=== PATIENT | female | born 2000 | race Caucasian/White ===

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

== ENCOUNTER → 2020-03-15 | Outpatient (CLI) | payer OTHER ==
[~2020-03-15] MED LIST: FLAG500T PO; FLUC150T PO; PROV108A INH
== END ==
LOC: M WUC 12:57
PROVIDERS: ATTEND Nurse Practitioner Family
DX: Z32.01 Encounter for pregnancy test, result positive (principal)
CPT/HCPCS: 36415; 84702; G0463

== ENCOUNTER → 2020-03-18 | Outpatient (CLI) | payer OTHER | LOC: M WUC 14:06 | PROVIDERS: ATTEND Nurse Practitioner Family | DX: Z32.01 Encounter for pregnancy test, result positive (principal) ==

== ENCOUNTER 2020-03-29 22:19 | Emergency (ER) | payer OTHER ==
[~2020-03-29] VITALS: Ht 160 cm; Wt 60.8 kg
--- OUTSIDE RECORDS SUMMARY | 2020-03-29 22:24 | CCD ---
Author Author [facility] Organization [facility] Address Unknown Phone Unavailable Care Team Providers Care Manager Consumer Name Role Phone Amada Nam Unavailable PROBLEMS Type Condition ICD9-CM Code [id number] Code Onset Dates Condition S tatus W/U Status Risk SNOMED Code Notes Problem Mild intermittent asthma without complication J45. 20 Active confirmed [id number] ALLERGIES No Known Allergies ENCOUNTERS from 2000 to 2020-03-21 Encounter Location Date Provider Diagnosis [facility] [address] [place] [address], Amada Nam Encounter to establish care Z76.89 ; Pos itive urine test Z32.01 and Mild intermittent asthma without complication J45.20 IMMUNIZATIONS No Information SOCIAL HISTORY Tobacco Use: Social History Observation Description Date Details (start date - stop date) Never Smoker Sex Assigned At : Social History Observation Description Sex Assigned At Unknown Education: Question Answer Notes Level of Education: High School Audit Question Answer Notes Total Score: 1 Interpretation: Alcohol Education Language: Question Answer Notes Languages spoken: Romanian Jehovah'S Witness: Question Answer Notes Jehovah'S Witness No jew beliefs that would impact health care. Domestic Violence: Question Answer Notes Status: Sexual Hx: Question Answer Notes Had sex in the last 12 months (vaginal, oral, or anal)? Yes LMP: 01/2020 Have you ever had an STD? No with Men only Use protection? No Drug and Alcohol Question Answer Notes Total Score: 0 Interpretation: No problems reported Alcohol Screening: Question Answer Notes Did you have a drink containing alcohol in the past year? Ye s Points 1 Interpretation Negative How often did you have six or more drinks on one occas ion in the past year? Never (0 points) How often did you have a drink containing alcohol in t he past year? Monthly or less (1 point) Tobacco Use: Question Answer Notes Are you a: never smoker REASON FOR REFERRAL No Information VITAL SIGNS Weight 134 lbs Mar, Height 62.5 in Mar, BMI 24.12 kg/m2 Mar, Heart Rate 81 /min Mar, Respiratory Rate 17 /min Mar, Temperature 98.3 degrees Fahrenheit Mar, Oximetry 97 Mar, Blood pressure systolic 103 mm Hg Mar, Blood pressure diastolic 80 mm Hg Mar, MEDICATIONS Medication SIG (Take, Route, Frequency, Duration) Notes Start Da te End Date Status Albuterol Sulfate HFA 108 (90 Base) MCG/ACT 1 puff as needed Inhalation every 4 hrs for 30 Days Mar, Active PROCEDURES No Information RESULTS No Results REASON FOR VISIT ESTABLISH CARE/PATIENT IS MEDICAL (GENERAL) HISTORY Type Description Date Surgical History Broken Left Arm 11 yrs Surgical History Ovarian Cysts Removed 2018 Goals Section No Information Health Concerns No Information MEDICAL EQUIPMENT No Information MENTAL STATUS No Information FUNCTIONAL STATUS No Information ASSESSMENTS Encounter Date Diagnosis Assessment Notes Treatment Notes Treatm ent Clinical Notes Mar, Encounter to establish care (ICD-10 - Z76.89) Appears to be physically healthy. Discussed pegnancy diet/lifestyle precautions, including medication safety at length. Discussed continued use of unisom/b6 until first OB appointment. Serial hcg ordered. Referral to OB placed. Albuterol inhaler refilled. No excerbations requiring hospitalization in PMH. Mar, Positive urine test (ICD-10 - Z32.01) Mar, Mild intermittent asthma without complication (I CD-10 - J45.20) see notes above PLAN OF TREATMENT Medication Medication Name Sig Start Date Stop Date Albuterol Sulfate HFA 108 (90 Base) MCG/ACT 1 puff as needed Inhalation every 4 hrs for 30 Days Mar, Treatment Notes Assessment Notes Clinical Notes Encounter to establish care Appears to b e physically healthy. Discussed pegnancy diet/lifestyle precautions, including medication safety at length. Discussed continued use of unisom/b6 until first OB appointment. Serial hcg ord ered. Referral to OB placed. Albuterol inhaler refilled. No excerbations requiring hospitalization in PMH. Mild intermittent asthma without complication see notes above Future Test Test Name Order Date HCG, SERUM QUANTITATIVE 20200318 HCG, SERUM QUANTITATIVE [id number] Next Appt Details 1 year, sooner if needed Reason: Provider Name:Tory Canseco, 2020-04-12 0 1:20:00 PM, [address] [place], [address], Insurance Providers Payer Name Payer Address Payer Phone Insured Name Patient Relati onship to Insured Coverage Start Date Coverage End Date [place] [phone] YING CHRISTINA
--- OUTSIDE RECORDS SUMMARY | 2020-03-29 22:25 | CCD ---
Author Author [facility] Organization [facility] Address Unknown Phone Unavailable Support Name Relationship Address Phone YING CHRISTINA Next Of Kin Unknown [phone] UE Next Of Kin Unknown Unavailable YING CHRISTINA Next Of Kin [address] [place] [address] YING CHRISTINA ECON [address] [place] [id number] Unavailable Re-disclosure Warning The records that you are about to access may contain information from federally-assisted alcohol or drug abuse programs. If such information is present, then the following federally mandated warning applies: This information has been disclosed to you from records protected by federal confidentiality rules (42 CFR part 2). The federal rules prohibit you from making any further disclosure of this information unless further disclosure is expressly permitted by the written consent of the person to whom it pertains or as otherwise permitted by 42 CFR part 2. A general authorization for the release of medical or other information is NOT sufficient for this purpose. The Federal rules restrict any use of the information to criminally investigate or prosecute any alcohol or drug abuse patient.The records that you are about to access may contain highly sensitive health information, the redisclosure of which is protected by Article 27-F of the [facility] Public Health law. If you continue you may have access to information: Regarding HIV / AIDS; Provided by facilities licensed or operated by the [facility] Office of Mental Health; or Provided by the [facility] Office for People With Developmental Disabilities. If such information is present, then the following [facility] mandated warning applies: This information has been disclosed to you from confidential records which are protected by state law. State law prohibits you from making any further disclosure of this information without the specific written consent of the person to whom it pertains, or as otherwise permitted by law. Any unauthorized further disclosure in violation of state law may result in a fine or detention sentence or both. A general authorization for the release of medical or other information is NOT sufficient authorization for further disc losure. Family History Family Member Name Family Member Gender Family Member Status Date o f Status Description Data Source(s) Unknown Male Problem MEDENT ([facility]) Encounters Encounter Providers Location Date Indications Data Source(s ) Out[place] [address] [facility] [address] 03/15/2020 12:00:00 AM EST eCW1 ([facility]) Medications Medication Brand Name Start Date Product Form Dose Route Admi nistrative Instructions Pharmacy Instructions Status Indications Reaction Description Data Source(s) Albuterol Sulfate HFA 108 (90 Base) MCG/ACT Albuterol Sulfate HFA 108 (90 Base) MCG/ACT 03/15/2020 12:00:00 AM EST 1.0 {puff_as_needed} active Albuterol Sulfate HFA 108 (90 Base) MCG/ACT eCW1 ([facility]) Insurance Providers Payer name Policy type / Coverage type Policy ID Covered alliance party ID Covered alliance party's relationship to koehler Policy Koehler Plan Information [facility] [id number] 2 [id number] [employer] - O/P [id number] 01 [id number] [employer] [place] [id number] 01 [id number] [employer] [place] [id number] 01 [id number] [employer] - PHYSICIAN [id number] 01 [id number] [employer] [id number] Family Dependent [id number] [employer] [id number] Family Dependent [id number] [employer] [id number] [facility] [id number] Problems, Conditions, and Diagnoses Code Display Name Description Problem Type Effective Dates Data Source(s) J45.20 [id number] Mild intermittent asthma without complica tion Problem 03/15/2020 12:00:00 AM EST eCW1 ([facility]) Social History Code Duration Value Status Description Data Source(s ) Smoking 03/15/2020 12:00:00 AM EST Never Smoker completed Never S moker eCW1 ([facility]) Vital Signs ID Date Data Source UNK Name Value Range Interpretation Code Description Data Source(s) Diastolic blood pressure 80 mm[Hg] 80 mm[Hg] eCW1 ([facility]) Systolic blood pressure 103 mm[Hg] 103 mm[Hg] e CW1 ([facility]) Body temperature 98.3 [degF] 98.3 [degF] eCW1 ( [facility]) Respiratory rate 17 /min 17 /min eCW1 ([facility]) Heart rate 81 /min 81 /min eCW1 ([facility]) Body mass index (BMI) [Ratio] 24.12 kg/m2 24.12 kg/m2 eCW1 ([facility]) Body height 62.5 [in_i] 62.5 [in_i] eCW1 ([facility]) Body weight 134 [lb_av] 134 [lb_av] eCW1 ([facility]) Patient Treatment Plan of Care Planned Activity Planned Date Details Description Data Source (s) Albuterol Sulfate HFA 108 (90 Base) MCG/ACT 03/15/2020 12:00:00 AM EST eCW1 ([facility])
[2020-03-29 22:52] LABS: BASO % 0.3 % (0.0-1.0); EOS # 0.1 10^3/uL (0.0-0.5); HEMOGLOBIN 12.4 g/dl (12.0-15.5); LYMPH # 2.6 10^3/uL (1.5-5.0); LYMPH % 27.9 % (24.0-44.0); MEAN CORPUSCULAR HEMOGLOBIN 29.3 pg (27.0-33.0); MEAN CORPUSCULAR HGB CONC 32.6 g/dl (32.0-36.5); MEAN CORPUSCULAR VOLUME 89.8 fl (80.0-96.0); MONO # 0.5 10^3/uL (0.0-0.8); MONO % 5.6 % (2.0-8.0); NEUTROPHILS # 5.9 10^3/uL (1.5-8.5); NEUTROPHILS % 64.9 % (36.0-66.0); PLATELET COUNT, AUTOMATED 324 10^3/uL (150-450); RED BLOOD COUNT 4.23 10^6/uL (4.00-5.40); WHITE BLOOD COUNT 9.2 10^3/uL (4.0-10.0)
[2020-03-29 23:34] LABS: ALT/SGPT 38 U/L (12-78); BILIRUBIN,DIRECT < 0.1 MG/DL (0.0-0.2); BILIRUBIN,TOTAL 0.1 MG/DL (0.2-1.0); HCG, SERUM QUANTITATIVE 95347 MIU/ML; LIPASE 124 U/L (73-393); TOTAL PROTEIN 7.5 GM/DL (6.4-8.2)
--- OUTSIDE RECORDS SUMMARY | 2020-03-29 23:45 | CCD ---
Author Author [facility] Organization [facility] Address Unknown Phone Unavailable Support Name Relationship Address Phone YING CHRISTINA Next Of Kin Unknown [phone] UE Next Of Kin Unknown Unavailable YING CHRISTINA Next Of Kin [address] [place] [address] YING CHRISTINA ECON [address] [place] [address] Unavailable Re-disclosure Warning The records that you [...] is protected by Article 27-F of the [facility] Public Health law. If you continue you may have access to information: Regarding HIV / AIDS; Provided by facilities licensed or operated by the [facility] Office of Mental Health; or Provided by the [facility] Office for People With Developmental Disabilities. If such information is present, then the following [facility] mandated warning applies: This information has [...] law may result in a fine or correction sentence or both. A general authorization for the release of medical or other information is NOT sufficient authorization for further disc losure. Family History Family Member Name Family Member Gender Family Member Status Date o f Status Description Data Source(s) Unknown Male Problem MEDENT ([facility]) Encounters Encounter Providers Location Date Indications Data Source(s ) Outpatient [address] [facility] [address] 03/15/2020 12:00:00 AM EST eCW1 ([facility]) Medications Medication Brand Name Start Date Product Form Dose Route Admi nistrative Instructions Pharmacy Instructions Status Indications Reaction Description Data Source(s) Albuterol Sulfate HFA 108 (90 Base) MCG/ACT Albuterol Sulfate HFA 108 (90 Base) MCG/ACT 03/15/2020 12:00:00 AM EST 1.0 {puff_as_needed} active Albuterol Sulfate HFA 108 (90 Base) MCG/ACT eCW1 ([facility]) Insurance Providers Payer name Policy type / Coverage type Policy ID Covered constitution party ID Covered constitution party's relationship to koehler Policy Koehler Plan Information [facility] [id number] [facility] [id number] [employer] - O/P [id number] 01 [id number] [employer] [place] [id number] 01 [id number] [employer] [place] [id number] 01 [id number] [employer] PHYSICIAN [id number] 01 [id number] [employer] [id number] Family Dependent [id number] [employer] [id number] Family Dependent [id number] [employer] [facility] [id number] [facility] [id number] Problems, Conditions, and Diagnoses Code Display Name Description Problem Type Effective Dates Data Source(s) J45.20 [id number] Mild intermittent asthma without complica tion Problem 03/15/2020 12:00:00 AM EST eCW1 ([facility]) Social History Code Duration Value Status Description Data Source(s ) Smoking 03/15/2020 12:00:00 AM EST Never Smoker completed Never S moker eCW1 ([facility]) Vital Signs ID Date Data Source UNK Name Value Range Interpretation Code Description Data Source(s) Diastolic blood pressure 80 mm[Hg] 80 mm[Hg] eCW1 ([facility]) Systolic blood pressure 103 mm[Hg] 103 mm[Hg] e CW1 ([facility]) Body temperature 98.3 [degF] 98.3 [degF] eCW1 ( [facility]) Respiratory rate 17 /min 17 /min eCW1 ([facility]) Heart rate 81 /min 81 /min eCW1 ([facility]) Body mass index (BMI) [Ratio] 24.12 kg/m2 24.12 kg/m2 eCW1 ([facility]) Body height 62.5 [in_i] 62.5 [in_i] eCW1 ([facility]) Body weight 134 [lb_av] 134 [lb_av] eCW1 ([facility]) Patient Treatment Plan of Care Planned Activity Planned Date Details Description Data Source (s) Albuterol Sulfate HFA 108 (90 Base) MCG/ACT 03/15/2020 12:00:00 AM EST eCW1 ([facility])
--- NOTE | 2020-03-30 00:34 | REPVR ---
PROCEDURE INFORMATION: Exam: US First Trimester, Transabdominal Exam date and time: 03/30/2020 12:15 AM Age: 19 years old Clinical indication: Lmp or gestational age (in weeks): 8w 3d; Other: Vaginal discharge and cramping; ; Additional info: Cramping/discharge TECHNIQUE: Imaging protocol: Real-time transabdominal obstetrical ultrasound of the maternal pelvis and a first trimester , less than 14 weeks 0 days, with image documentation. COMPARISON: No relevant prior studies available. FINDINGS: Gestation: Single live intrauterine gestation. Embryonic/ heart rate: heart rate measures 172 bpm. Placenta: Unremarkable. No subchorionic bleed. Amniotic fluid: Amniotic fluid is normal for gestational age. BIOMETRY: Gestational age (AUA): Estimated gestational age is 8 weeks 4 days. Estimated due date (AUA): Estimated due date is 11/05/2020. Bromide-Rump length: Bromide-rump length measures 19.5 cm. 50 percentile. MATERNAL: Uterus: Unremarkable. Cervix: Unremarkable. Right adnexa: Sought but not visualized. Left adnexa: Hypoechoic cyst in the left ovary measuring 7.5 x 6.6 x 7.0 cm. Minimal rim ovarian tissue is seen around the cyst. There appears to be debris layering within the cyst. Intraperitoneal space: No intraperitoneal free fluid. IMPRESSION: 1. Single live intrauterine gestation. 2. Estimated gestational age is 8 weeks 4 days. 3. Estimated due date is 11/05/2020. 4. Recommend follow-up anatomical survey ultrasound at 19-20 weeks gestational age. 5. Mildly complicated cyst in the left ovary. Recommend 6-12 week follow-up to ensure resolution. Electronically signed by: López Jordan On 03/30/2020 00:34:46 AM
[2020-03-30] MEDS ORDERED: FLAG500T PO (01:52)
[2020-03-30 02:00] VITALS: BP 121/69
[2020-03-30 03:07] LABS: CHLAMYDIA DNA AMPLIFICATION POSITIVE (NEGATIVE); GC DNA AMPLIFICATION NEGATIVE (NEGATIVE)
--- NOTE | 2020-04-01 08:20 | ED PDOC ---
Post-Departure Follow-Up first trimester us faxed to dr calixto and ft edi alvarado for fu Linda Alicea MD Apr 01, 2020 08:20
== END 2020-03-30 02:01 | disposition home or self-care (01) ==
LOC: M ED 22:19
DX: N76.0 Acute vaginitis (principal); N83.202 Unspecified ovarian cyst, left side; Z3A.01 Less than 8 weeks gestation of pregnancy

== ENCOUNTER → 2020-05-30 | Outpatient (REF) | payer OTHER ==
[2020-05-30 15:35] LABS: HEMATOCRIT 35.7 % (36.0-47.0); HEMOGLOBIN 11.8 g/dl (12.0-15.5); MEAN CORPUSCULAR HEMOGLOBIN 30.9 pg (27.0-33.0); MEAN CORPUSCULAR HGB CONC 33.1 g/dl (32.0-36.5); MEAN CORPUSCULAR VOLUME 93.5 fl (80.0-96.0); PLATELET COUNT, AUTOMATED 279 10^3/uL (150-450); RED BLOOD COUNT 3.82 10^6/uL (4.00-5.40); WHITE BLOOD COUNT 9.5 10^3/uL (4.0-10.0)
[2020-05-30 16:57] LABS: CHLAMYDIA DNA AMPLIFICATION NEGATIVE (NEGATIVE); GC DNA AMPLIFICATION NEGATIVE (NEGATIVE)
[2020-05-31 09:20] LABS: HIV 1&2 SCREEN CENTAUR NEGATIVE (NEGATIVE)
== END ==
LOC: M PLALAB 12:46
PROVIDERS: ATTEND Advanced Practice Midwife
DX: Z36.89 Encounter for other specified antenatal screening (principal)

== ENCOUNTER → 2020-06-21 | Outpatient (REF) | payer OTHER | LOC: M SFHCWAGY 16:48 | PROVIDERS: ATTEND Advanced Practice Midwife | DX: Z34.02 Encounter for supervision of normal first pregnancy, second trimester (principal) | CPT/HCPCS: 87086; G0463 ==

== ENCOUNTER → 2020-07-02 | Outpatient (CLI) | payer OTHER ==
--- NOTE | 2020-07-02 14:00 | REP ---
INDICATION: ANATOMY COMPARISON: None. TECHNIQUE: Transabdominal obstetrical ultrasound with color Doppler evaluation. FINDINGS: Examination demonstrates a single live intrauterine in cephalic presentation. motion is identified by technologist. Placenta is noted posterior/fundal and grade 0 without evidence for placenta previa or abruption. Amniotic fluid volume is normal. Cervix measures 3.3 cm in length and appears closed.. Gestational age by 1st U/S 21 weeks 6 days with HAWA 11/06/2020. Gestational age by current measurements 22 weeks 5 days with AHWA 10/31/2020. FHR equals 152 beats per minute. Estimated weight 507 grams (73rdpercentile). Anatomical assessment demonstrates normal structures including cranium, choroid plexus, cavum, cerebellum/posterior fossa, facial features, lungs, four-chamber heart/ventricular outflow tracts, diaphragm, stomach, cord insertion/three-vessel cord, kidneys/bladder, spine, and extremities. IMPRESSION: Single live intrauterine in cephalic presentation demonstrating appropriate estimated weight. Anatomical assessment is complete and normal. <Electronically signed by Chandler Reaves > 07/02/20 [id number]
== END ==
LOC: M WHC 12:46
PROVIDERS: ATTEND Advanced Practice Midwife
DX: Z34.82 Encounter for supervision of other normal pregnancy, second trimester (principal); Z3A.21 21 weeks gestation of pregnancy

== ENCOUNTER 2020-07-27 11:34 | Outpatient (CLI) | payer OTHER ==
[~2020-07-27] VITALS: Ht 157.5 cm; Wt 67.8 kg
[2020-07-27 11:50] VITALS: BP 118/65
[2020-07-27 14:16] VITALS: BP 118/66
[2020-07-27 15:32] LABS: HEMATOCRIT 29.1 % (36.0-47.0); HEMOGLOBIN 9.5 g/dl (12.0-15.5); MEAN CORPUSCULAR HEMOGLOBIN 30.2 pg (27.0-33.0); MEAN CORPUSCULAR HGB CONC 32.6 g/dl (32.0-36.5); MEAN CORPUSCULAR VOLUME 92.4 fl (80.0-96.0); PLATELET COUNT, AUTOMATED 284 10^3/uL (150-450); RED BLOOD COUNT 3.15 10^6/uL (4.00-5.40); WHITE BLOOD COUNT 9.9 10^3/uL (4.0-10.0)
== END 2020-07-27 17:12 | disposition home or self-care (01) ==
LOC: M LDO 11:34
PROVIDERS: ATTEND Obstetrics & Gynecology
DX: O26.892 Other specified pregnancy related conditions, second trimester (principal); R25.2 Cramp and spasm; Z3A.25 25 weeks gestation of pregnancy; O26.852 Spotting complicating pregnancy, second trimester
CPT/HCPCS: 36415; 81001; 82731; 85027; G0378; G0463

== ENCOUNTER → 2020-08-26 | Outpatient (CLI) | payer OTHER ==
[2020-08-26 15:18] LABS: HEMATOCRIT 29.4 % (36.0-47.0); HEMOGLOBIN 9.2 g/dl (12.0-15.5); MEAN CORPUSCULAR HGB CONC 31.3 g/dl (32.0-36.5); MEAN CORPUSCULAR VOLUME 89.4 fl (80.0-96.0); PLATELET COUNT, AUTOMATED 332 10^3/uL (150-450); RED BLOOD COUNT 3.29 10^6/uL (4.00-5.40); WHITE BLOOD COUNT 10.3 10^3/uL (4.0-10.0)
== END ==
LOC: M PLALAB 12:18
PROVIDERS: ATTEND Advanced Practice Midwife
DX: Z34.82 Encounter for supervision of other normal pregnancy, second trimester (principal)

== ENCOUNTER 2020-09-09 13:59 | Inpatient (IN) | payer OTHER ==
[~2020-09-09] VITALS: Ht 160 cm; Wt 71.5 kg
[2020-09-09] MEDS ORDERED: ACETAMINOPHEN 500 MG TAB PO ONE (16:05)
[2020-09-09] MEDS ORDERED: NS 1,000 ML IV ONE ×2 (16:05→18:10)
[2020-09-09] MEDS ORDERED: METOCLOPRAMIDE INJ 10MG/2ML VIAL (J2765 PER 1) IV ONE (16:05)
[2020-09-09 17:41] LABS: BASO % 0.3 % (0.0-1.0); EOS % 0.3 % (0.0-3.0); HEMATOCRIT 31.6 % (36.0-47.0); HEMOGLOBIN 9.7 g/dl (12.0-15.5); LYMPH # 0.8 10^3/uL (1.5-5.0); LYMPH % 10.8 % (24.0-44.0); MEAN CORPUSCULAR HEMOGLOBIN 27.3 pg (27.0-33.0); MEAN CORPUSCULAR HGB CONC 30.7 g/dl (32.0-36.5); MONO # 0.3 10^3/uL (0.0-0.8); MONO % 4.5 % (2.0-8.0); NEUTROPHILS # 5.9 10^3/uL (1.5-8.5); NEUTROPHILS % 79.8 % (36.0-66.0); PLATELET COUNT, AUTOMATED 262 10^3/uL (150-450); RED BLOOD COUNT 3.55 10^6/uL (4.00-5.40); WHITE BLOOD COUNT 7.4 10^3/uL (4.0-10.0)
[2020-09-09 17:52] LABS: INR 0.99; PROTHROMBIN TIME 13.5 SECONDS (12.7-14.5)
[2020-09-09 17:53] LABS: PARTIAL THROMBOPLASTIN TIME 30.5 SECONDS (25.9-37.0)
[2020-09-09 17:55] LABS: D-DIMER QUANT 1027.96 ng/ml (<500)
[2020-09-09 18:07] LABS: ALBUMIN 2.8 GM/DL (3.2-5.2); ALT/SGPT 19 U/L (12-78); BLOOD UREA NITROGEN 5 MG/DL (7-18); C REACTIVE PROTEIN QUANTITATIV 2.81 MG/DL (0.00-0.30); CALCIUM LEVEL 8.9 MG/DL (8.5-10.1); CARBON DIOXIDE LEVEL 17 MEQ/L (21-32); CHLORIDE LEVEL 109 MEQ/L (98-107); CK-MB VALUE MASS < 1.0 NG/ML (<3.6); CPK CREATINE PHOSPHOKINASE 34 U/L (26-192); CREATININE FOR GFR 0.52 MG/DL (0.55-1.30); FERRITIN 13 NG/ML (8-252); GLUCOSE, FASTING 71 MG/DL (70-100); LDH LACTATE DEHYDROGENASE 209 U/L (84-246); MAGNESIUM LEVEL 1.8 MG/DL (1.8-2.4); MB/CK RELATIVE INDEX 2.94 (< OR =4); SODIUM LEVEL 139 MEQ/L (136-145); TROPONIN I < 0.02 NG/ML (< 0.10)
[2020-09-09 18:51] LABS: ERYTHROCYTE SEDIMENTATION RATE 63 mm/hr (0-20)
--- NOTE | 2020-09-09 18:53 | REP ---
INDICATION: RUQ pain, n,v. COMPARISON: None. TECHNIQUE: Real-time sonographic evaluation of right upper quadrant performed. FINDINGS: Moderate sludge is seen in the gallbladder without evidence of gallstones. There is no gallbladder wall thickening or pericholecystic fluid.. There is no intrahepatic or extrahepatic biliary dilatation, common bile duct measures 2 mm in maximum diameter. The liver demonstrates homogeneous echotexture with no gross mass. Pancreas could not be seen due to overlying bowel gas. The right kidney demonstrates no hydronephrosis, with a normal size of 10.6 cm in length. No free fluid is seen. IMPRESSION: Moderate sludge in the gallbladder. No gallstones, gallbladder wall thickening, free fluid or biliary dilatation. <Electronically signed by Aiden Lo > 09/09/20 [id number]
--- NOTE | 2020-09-09 18:54 | REP ---
INDICATION: short of breath, leg pain, covid exposure COMPARISON: None. TECHNIQUE: Real time compression and duplex Doppler interrogation of the bilateral lower extremity deep venous system is performed. Compression ultrasound is performed of the bilateral peroneal and posterior tibial veins. FINDINGS: Bilaterally, the common femoral, superficial femoral and popliteal veins are fully compressible with transducer pressure and demonstrate normal spontaneous and phasic flow, without evidence of deep venous thrombosis. No thrombus is seen in the bilateral visualized portions of the peroneal and posterior tibial veins. IMPRESSION: No evidence of deep venous thrombosis of the bilateral lower extremity femoral popliteal venous system. <Electronically signed by Aiden Lo > 09/09/20 0725
[2020-09-09] MEDS ORDERED: FERR32TA PO (19:04)
[2020-09-09] MEDS ORDERED: HOME MED LIST COMPLETE! XX SCH (19:05)
--- NOTE | 2020-09-09 19:41 | REP ---
INDICATION: short of breath, covid + COMPARISON: None. TECHNIQUE: PA/Lateral FINDINGS: Lungs: There are patchy infiltrates in the bilateral mid and lower lung zones, right greater than left. Heart: Normal in size. Mediastinum: Mediastinal silhouette unremarkable. Pleural angles: Unremarkable.. Bones and soft tissues: Unremarkable. IMPRESSION: Bilateral infiltrates right greater than left. <Electronically signed by Aiden Lo > 09/09/20 [id number]
[2020-09-09] MEDS ORDERED: ASPIRIN 325 MG TAB PO ONE (19:55)
--- NOTE | 2020-09-09 20:02 | ECGEPIP ---
[facility] - ED Test Date: 2020-09-09 Pat Name: ELIF CHRISTINA Department: Room: - Gender: Female Undercutter: [place] : 2000 Requested By: DANITA Jay PA-C Order Number: [id number] Reading MD: Diane Kessler Measurements Intervals [place] Rate: 124 P: 33 IA: 132 QRS: 71 QRSD: 74 T: 3 QT: 318 QTc: 456 Interpretive Statements Sinus tachycardia Nonspecific T wave abnormality No prior Electronically Signed on 09-09-2020 20:02:25 EDT by Diane Kessler
[2020-09-09] MEDS ORDERED: ASPIRIN 81 MG CHEW TABLET PO ONE (20:30)
--- NOTE | 2020-09-09 21:03 | HPEPDOC ---
Obstetrical History & Physical General Date of Admission 09/09/20 Primary Care Physician: COTY BARON CNM History of Present Illness Valeria is a 20-year-old female who is who is 30.6 weeks gestation with an HAWA of 10/05/20. She presented to L&D with complaints of SOB, chest pain, and difficulty breathing. Reports her symptoms started 1 week ago and she has progressively gotten worse. Reports she has been unable to eat or drink for multiple days and has had a fever. She denies contractions, leaking of fluid, or vaginal bleeding. She reports active movement. 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), History of STD (chlamydia 04/2020) Past Medical History Medical History Asthma Anemia in Surgical History: Other (broken left arm and cystectomy removed 08/2018) Family History Significant Family History: No pertinent family hx Social History Social history works for [employer]; highest level of education is high school Marital Status: Family situation: Spouse/partner home Psychosocial History: No pertinent psych hx * Smoker: former Smoker (former vape) Alcohol: Denies Drugs: denies Abuse Violence Screening Have you been hit/kicked/slapp: No Have you been sexually assault: No Allergies Coded Allergies: No Known Allergies (Unverified , 06/06/18) Medications Scheduled Ferrous Gluconate (Ferrous Gluconate) 324 Mg Tablet, 324 MG PO BID Scheduled PRN Albuterol Sulfate (Proventil Hfa) 6.7 Gm Hfa.aer.ad, 2 PUFF INH Q4H PRN for SOB/WHEEZING Physical Examination Physical Examination GENERAL: Alert and oriented times three. Speech is clear and in complete sentences. ABDOMEN: Gravid and non-tender to touch. FETUS:active as heard on EFM HEART RATE: Periods of tachycardia but at rest in the HR in the 90's. LUNGS: Clear to auscultation (CTA) bilaterally. RR is regular without use of accessory muscles when at rest. EXTREMITIES: generalized edema. Sequential stockings on. No clonus. Vital Signs/I&O Vital Signs Date Time Temp Pulse Resp B/P (MAP) Pulse Ox O2 Delivery O2 Flow Rate FiO2 09/09/20 18:52 97.6 106 16 123/60 (81) 98 Room Air Laboratory Data 24H LABS Laboratory Tests 2 09/09/20 16:01: Immature Granulocyte % (Auto) 4.3H, Neutrophils (%) (Auto) 79.8H, Lymphocytes (%) (Auto) 10.8L, Monocytes (%) (Auto) 4.5, Eosinophils (%) (Auto) 0.3, Basophils (%) (Auto) 0.3, Neutrophils # (Auto) 5.9, Lymphocytes # (Auto) 0.8L, Monocytes # (Auto) 0.3, Eosinophils # (Auto) 0.0, Basophils # (Auto) 0.0, Nucleated Red Blood Cells % (auto) 0.0, Erythrocyte Sedimentation Rate 63H, Prothrombin Time 13.5, Prothromb Time International Ratio 0.99, Activated Partial Thromboplast Time 30.5, Fibrinogen 491H, D-Dimer, Quantitative 1027.96H, Anion Gap 13, Lactic Acid Level 1.0, Calcium Level 8.9, Magnesium Level 1.8, Ferritin 13, Total Bilirubin 1.0, Aspartate Amino Transf (AST/SGOT) 26, Alanine Aminotransferase (ALT/SGPT) 19, Alkaline Phosphatase 142H, Lactate Dehydrogenase 209, Total Creatine Kinase 34, Creatine Kinase MB < 1.0, Creatine Kinase MB Relative Index 2.94, Troponin I < 0.02, C-Reactive Protein, Quantitative 2.81H, Total Protein 7.0, Albumin 2.8L, Albumin/Globulin Ratio 0.7L, Procalcitonin 0.07 09/09/20 18:09: Urine Color EUGENE, Urine Appearance HAZY, Urine pH 6.0, Urine Specific [place] 1.028, Urine Protein 2+H, Urine Glucose (UA) 1+H, Urine Ketones 2+H, Urine Blood NEGATIVE, Urine Nitrite NEGATIVE, Urine Bilirubin 1+H, Urine Urobilinogen 4.0H, Urine Leukocyte Esterase NEGATIVE, Urine WBC (Auto) 3, Urine RBC (Auto) 3, Urine Hyaline Casts (Auto) 0, Urine Bacteria (Auto) 1+H, Urine Squamous Epithelial Cells 13, Urine Mucus (Auto) SMALL, Urine Sperm (Auto) CBC/BMP Laboratory Tests 09/09/20 16:01 Microbiology Microbiology 09/09/20 Respiratory Virus Panel (PCR) (JANELL) - Final, Complete SARS-CoV-2 (COVID 19) 09/09/20 Blood Culture, Received Pending 09/09/20 Blood Culture, Received Pending Pertinent Laboratoy Data RBC Antibody Screen: Negative HIV: Negative Rapid Plasma Reagin: Nonreactive Rubella: Immune Chlamydia/Gonorrhea: Negative Glucose Tolerance Test: 116 Other Ultrasounds Information NAME: VALERIA CHRISTINA DATE OF : 2000 AGE: 20 SEX: F REPORT #: [id number] ROOM: ED TECHNOLOGIST: ALPA DOCTOR: DANITA EDWARDS PA-C Ordered for Date&Time: 09/09/20 1858 cc: [~ rep ct ivnm] Service Date&Time: 09/09/20 1916 EXAMINATION REQUESTED: Chest, 2 view PA, Lat REASON FOR PATIENT VISIT: COVID+ REASON FOR EXAM/COMMENT: short of breath, covid + INDICATION: short of breath, covid + COMPARISON: None. TECHNIQUE: PA/Lateral FINDINGS: Lungs: There are patchy infiltrates in the bilateral mid and lower lung zones, right greater than left. Heart: Normal in size. Mediastinum: Mediastinal silhouette unremarkable. Pleural angles: Unremarkable.. Bones and soft tissues: Unremarkable. IMPRESSION: Bilateral infiltrates right greater than left. NAME: VALERIA CHRISTINA DATE OF : 2000 AGE: 20 SEX: F REPORT #: [id number] ROOM: ED TECHNOLOGIST: ELI DOCTOR: DANITA EDWARDS PA-C Ordered for Date&Time: 09/09/20 1808 cc: [~ rep ct ivnm] Service Date&Time: 09/09/20 1843 EXAMINATION REQUESTED: GALLBLADDER US REASON FOR PATIENT VISIT: COVID+ REASON FOR EXAM/COMMENT: RUQ pain, n,v INDICATION: RUQ pain, n,v. COMPARISON: None. TECHNIQUE: Real-time sonographic evaluation of right upper quadrant performed. FINDINGS: Moderate sludge is seen in the gallbladder without evidence of gallstones. There is no gallbladder wall thickening or pericholecystic fluid.. There is no intrahepatic or extrahepatic biliary dilatation, common bile duct measures 2 mm in maximum diameter. The liver demonstrates homogeneous echotexture with no gross mass. Pancreas could not be seen due to overlying bowel gas. The right kidney demonstrates no hydronephrosis, with a normal size of 10.6 cm in length. No free fluid is seen. IMPRESSION: Moderate sludge in the gallbladder. No gallstones, gallbladder wall thickening, free fluid or biliary dilatation. <Electronically signed by Aiden Lo > 09/09/20 1849 Assessment Heart Rate (FHR): 115 Variability: Moderate Accelerations: Positive Decelerations: None Assessment/Plan Assessment IUP at 31.6 weeks gestation on admission Covid-19 positive pneumonia tachycardia Plan Admit per recommendation of Dr. Brown. Plan of care collaborated with Dr. Brown and Dr. Martinez. Continuous pulse ox LR 125cc/hr non stress test every 8 hours and continuos EFM if spO2 drops below 95% Sequentials ordered Lovenox 40 mg SQ ordered Regular diet Consult requested by internal medicine. Plan of care discussed with Dr. Martinez. COTY BARON CNM Sep 09, 2020 21:02
[2020-09-09 21:50] VITALS: BP 109/61
--- NOTE | 2020-09-09 22:30 | HPEPDOC ---
[facility] Medical History & Physical Date of Admission Sep 09, 2020 Date of Service: Sep 09, 2020 History and Physical MEDICINE CONSULTATION CHIEF COMPLAINT: Flulike symptoms and weakness HISTORY OF PRESENT ILLNESS: 20-year-old female 32 weeks presents to the emergency department because of an 8 day history of flulike symptoms at home. She endorses to me that she's been having some mild abdominal discomfort, decreased appetite she is not eating or drinking much. She reports a single episode of fever home on the first day of her symptoms and none since then. She also endorses a dry cough and chris lgia. She felt frustrated with her ongoing symptoms and presented to the emergency department. In the emergency room when she was found to be Covid positive she endorses that her is also Covid positive. Patient denies any shortness of breath or chest pain. She denies any current fevers or chills. She says her most bothersome symptom currently is her myalgias. I was asked by the obstetrics service to see the patient for medicine consultation. PAST MEDICAL/SURGICAL HISTORY: in her third trimester last menstrual period in January 2020 History of asthma History of anxiety History of ovarian cyst removal SOCIAL HISTORY: Denies alcohol use Denies tobacco use Denies illicit drug use FAMILY HISTORY: Reviewed and none contributory to this admission ALLERGIES: Please see below. REVIEW OF SYSTEMS: 10 point review of systems complete all negative otherwise stated in HPI HOME MEDICATIONS: Please see below. PHYSICAL EXAMINATION: Constitutional: Awake and alert, in no apparent distress ENT: Sclera are clear. Mucosa is dry Respiratory: Lungs slightly diminished breath sounds bilaterally. No wheezing or crackles. No respiratory distress. No use of accessory muscles. Able to speak in full sentences during the exam without becoming short of breath. Saturating at 98% on room air. Cardiovascular: RRR S1 and S2 are normal, no murmur Gastrointestinal: Gravid abdomen, non tender, BS present. Musculoskeletal: No lower extremity edema. Neurologic: No focal neurological deficit. Mental Status: A&O x3, normal affect Skin: No visible rashes LABORATORY DATA: See below. IMAGING: See chart MICROBIOLOGY: Please see below. ASSESSMENT # Covid pneumonia # Dehydration # Third trimester # History of asthma PLAN IV fluids for dehydration. HR already improved after IVFs in the ED. Initial inflammatory markers elevated for Covid. Trend inflammatory markers. Saturating well on room air and this is reassuring. Perform walk test tomorrow to check for oxygen saturation on ambulation Supplemental oxygen if needed to maintain O2 target 90% or better CXR showing bilateral infiltrates consistent with COVID pneumonia, her procalcitonin is only 0.07; Abx are discouraged. Repeat procalcitonin tomorrow. Given no oxygen requirements will hold off on using steroids or remdesivir for now and reassess in the morning. Follow blood cultures. follow-up pro-calcitonin if negative can DC Abx. DVT prophylaxis with Lovenox is appropriate. A [facility] Hospitalist Vital Signs Vital Signs Date Time Temp Pulse Resp B/P (MAP) Pulse Ox O2 Delivery O2 Flow Rate FiO2 09/09/20 21:50 97.0 96 18 109/61 (77) 97 Room Air Laboratory Data Labs 24H Laboratory Tests 2 09/09/20 16:01: Immature Granulocyte % (Auto) 4.3H, Neutrophils (%) (Auto) 79.8H, Lymphocytes (%) (Auto) 10.8L, Monocytes (%) (Auto) 4.5, Eosinophils (%) (Auto) 0.3, Basophils (%) (Auto) 0.3, Neutrophils # (Auto) 5.9, Lymphocytes # (Auto) 0.8L, Monocytes # (Auto) 0.3, Eosinophils # (Auto) 0.0, Basophils # (Auto) 0.0, Nucleated Red Blood Cells % (auto) 0.0, Erythrocyte Sedimentation Rate 63H, Prothrombin Time 13.5, Prothromb Time International Ratio 0.99, Activated Partial Thromboplast Time 30.5, Fibrinogen 491H, D-Dimer, Quantitative 1027.96H, Anion Gap 13, Lactic Acid Level 1.0, Calcium Level 8.9, Magnesium Level 1.8, Ferritin 13, Total Bilirubin 1.0, Aspartate Amino Transf (AST/SGOT) 26, Alanine Aminotransferase (ALT/SGPT) 19, Alkaline Phosphatase 142H, Lactate Dehydrogenase 209, Total Creatine Kinase 34, Creatine Kinase MB < 1.0, Creatine Kinase MB Relative Index 2.94, Troponin I < 0.02, C-Reactive Protein, Quantitative 2.81H, Total Protein 7.0, Albumin 2.8L, Albumin/Globulin Ratio 0.7L, Procalcitonin 0.07 09/09/20 18:09: Urine Color EUGENE, Urine Appearance HAZY, Urine pH 6.0, Urine Specific [place] 1.028, Urine Protein 2+H, Urine Glucose (UA) 1+H, Urine Ketones 2+H, Urine Blood NEGATIVE, Urine Nitrite NEGATIVE, Urine Bilirubin 1+H, Urine Urobilinogen 4.0H, Urine Leukocyte Esterase NEGATIVE, Urine WBC (Auto) 3, Urine RBC (Auto) 3, Urine Hyaline Casts (Auto) 0, Urine Bacteria (Auto) 1+H, Urine Squamous Epithelial Cells 13, Urine Mucus (Auto) SMALL, Urine Sperm (Auto) CBC/BMP Laboratory Tests 09/09/20 16:01 Microbiology Microbiology 09/09/20 Respiratory Virus Panel (PCR) (JANELL) - Final, Complete SARS-CoV-2 (COVID 19) 09/09/20 Blood Culture, Received Pending 09/09/20 Blood Culture, Received Pending Home Medications Scheduled Ferrous Gluconate (Ferrous Gluconate) 324 Mg Tablet, 324 MG PO BID Scheduled PRN Albuterol Sulfate (Proventil Hfa) 6.7 Gm Hfa.aer.ad, 2 PUFF INH Q4H PRN for SOB/WHEEZING Allergies Coded Allergies: No Known Allergies (Unverified , 06/06/18) LINDSAY BENAVIDES MD Sep 09, 2020 22:30
[2020-09-09] MEDS: LR 1,000 ML IV SCH (23:17)
[2020-09-10] VITALS (9 sets, daily range): BP systolic 94–110; BP diastolic 52–66; O2SAT 95–97
[2020-09-10] MEDS: ACETAMINOPHEN 500 MG TAB PO PRN ×2 (04:50→16:25)
[2020-09-10] MEDS ORDERED: METOCLOPRAMIDE INJ 10MG/2ML VIAL (J2765 PER 1) IV ONE (05:15)
[2020-09-10 08:15] LABS: HEMOGLOBIN 8.1 g/dl (12.0-15.5); MEAN CORPUSCULAR HEMOGLOBIN 27.6 pg (27.0-33.0); MEAN CORPUSCULAR HGB CONC 31.2 g/dl (32.0-36.5); MEAN CORPUSCULAR VOLUME 88.4 fl (80.0-96.0); PLATELET COUNT, AUTOMATED 220 10^3/uL (150-450); RED BLOOD COUNT 2.94 10^6/uL (4.00-5.40); WHITE BLOOD COUNT 7.3 10^3/uL (4.0-10.0)
[2020-09-10] MEDS: LR 1,000 ML IV SCH ×3 (08:30→23:02)
[2020-09-10] MEDS: ENOXAPARIN 40MG/0.4ML SYRINGE (J1650 PER 10MG) SC SCH (08:30)
[2020-09-10 08:32] LABS: D-DIMER QUANT 945.26 ng/ml (<500)
[2020-09-10 08:48] LABS: BLOOD UREA NITROGEN 2 MG/DL (7-18); C REACTIVE PROTEIN QUANTITATIV 2.69 MG/DL (0.00-0.30); CALCIUM LEVEL 7.9 MG/DL (8.5-10.1); CARBON DIOXIDE LEVEL 17 MEQ/L (21-32); CHLORIDE LEVEL 112 MEQ/L (98-107); CREATININE FOR GFR 0.31 MG/DL (0.55-1.30); FERRITIN 12 NG/ML (8-252); GLUCOSE, FASTING 79 MG/DL (70-100); LDH LACTATE DEHYDROGENASE 131 U/L (84-246); MAGNESIUM LEVEL 1.6 MG/DL (1.8-2.4); POTASSIUM SERUM 3.5 MEQ/L (3.5-5.1); SODIUM LEVEL 141 MEQ/L (136-145)
[2020-09-10 09:02] LABS: LYMPHOCYTES 10 % (16-44); MONOCYTES 5 % (0-5); NEUTROPHILS 84 % (28-66)
[2020-09-10 09:03] LABS: ANISOCYTOSIS 1+; PLATELET ESTIMATE NORMAL (NORMAL)
--- NOTE | 2020-09-10 13:18 | IPNPDOC ---
Text Note Date of Service The patient was seen on 09/10/20. NOTE Subjective: Subjective: Patient is a 20-year-old female who is 32 weeks presented to the emergency department with an 8-day history of flulike symptoms at home. Patient had some mild abdominal discomfort when she came in and has not been eating or drinking much. Patient had episode of fever on the first day of symptoms but none since then. Patient reports a dry cough and myalgias. Patient was getting frustrated with her ongoing symptoms and presented to the emergency department. Patient was found to be Covid positive and reports that her was also Covid positive. Patient denies any shortness of breath. Patient states that she is feeling better today. Review of systems: General: Patient denies fevers HEENT: Patient denies headaches Cardiovascular: Patient denies chest pain Respiratory: Patient denies shortness of breath, cough GI: Patient denies abdominal pain, nausea, vomiting, diarrhea : Patient denies increased frequency or pain with urination Extremities: Patient denies swelling or pain in extremities Neurological: Patient denies numbness or tingling in legs Physical exam: Vitals: See below General: Alert and oriented female who was sitting up in bed when I walked in the room. Patient not appear to be in any acute distress. HEENT: Normocephalic, atraumatic, moist mucous membranes. Neck: No lymphadenopathy or thyromegaly Cardiac: Regular rate and rhythm, no murmurs, normal S1, normal S2 Pulm: Clear to auscultation bilaterally. No wheezes, rhonchi, rales Abd: Gravid, nontender to palpation Ext: No edema bilateral lower extremities Labs: See below Imaging: No new imaging has been performed Assessment/plan: 20-year-old female who is 32 weeks who was diagnosed with Covid pneumonia 1. COVID-19 pneumonia. Patient has not required any oxygen although she was desatting with ambulation yesterday. Walk test was performed today and show that the patient's oxygen saturation did not drop below 96%. Patient did become mildly tachycardic which did recover very quickly. Patient is otherwise doing well. Patient can be discharged today to receive monoclonal antibodies if the patient would like as the patient's puts her in the high risk category for COVID-19. Patient has not been eating and drinking very much throughout the day so the decision was made to not discharge the patient today. 2. Dehydration most likely secondary to poor p.o. intake due to COVID-19. Patient has received IV fluids and is doing better. 3. Third trimester . Hospitals are on consult for the medical issues as SURFACING TECHNICIAN will continue to manage the . 4. History of asthma, does not appear in exacerbation today. DVT Prophylaxis: Lovenox Disposition: Pending improvement in the patient's p.o. intake. VS,Fishbone, I+O VS, Fishbone, I+O Laboratory Tests 09/09/20 16:01 09/10/20 07:21 Vital Signs Date Time Temp Pulse Resp B/P (MAP) Pulse Ox O2 Delivery O2 Flow Rate FiO2 09/10/20 12:00 98.6 111 17 106/66 (79) 95 Room Air I&O- Last 24 Hours up to 6 AM 09/10/20 06:00 Intake Total 3050 ml Balance 3050 ml JOSTIN ELDRIDGE DO Sep 10, 2020 13:18
--- NOTE | 2020-09-10 13:50 | REP ---
INDICATION: COVID+. Please do BPP and EFW. COMPARISON: 07/02/2020. TECHNIQUE: Multiple ultrasonographic images of the gravid uterus, including Doppler ultrasound. FINDINGS: There is a single intrauterine gestation in a cephalic presentation. The placenta is left lateral with grade 0 maturity. There is no placenta previa. heart rate is 137 beats per minute. Amniotic fluid index is 10.7) 8.6-24.2). The cervix measures 3.6 cm length. biophysical profile: Breathing 2.0 Tone 2.0 Movement 2.0 AFV 2.0 Total 8/8 Gestational age by today's ultrasound is 34 weeks 6 days with an HAWA of 10/16/2020. Gestational age by the 1st ultrasound is 31 weeks 6 days with an HAWA of 11/06/2020. Estimated weight is 2486 g/5 lb, 7 oz. This is greater than the 90th percentile for 31 weeks 6 days. Umbilical artery Doppler assessment: PSV: 45.3 cm per 2nd. EDV 21.9 centimeters/second. S/D: 2.07 (1.84-3.88). RI: 0.52 (0.50-0.75). anatomy has been previously E assessed and was normal, therefore is not repeated today. IMPRESSION: Single intrauterine gestation in a cephalic presentation. biophysical profile is normal with a score of 8/8. growth charts indicate normal interval growth. <Electronically signed by Aiden Donaldson > 09/10/20 [id number]
[2020-09-10] MEDS: ONDANSETRON 4MG/2ML VIAL IV PRN (14:48)
[2020-09-10] MEDS ORDERED: ALBUTEROL 90 MCG/ACT 8GM HFA INHALER INH ONE (15:00)
[2020-09-11] VITALS (24 sets, daily range): BP systolic 98–112; BP diastolic 54–64; O2SAT 92–98
[2020-09-11] MEDS: ONDANSETRON 4MG/2ML VIAL IV PRN (04:47)
[2020-09-11] MEDS: LR 1,000 ML IV SCH ×2 (07:58→17:22)
[2020-09-11] MEDS: ENOXAPARIN 40MG/0.4ML SYRINGE (J1650 PER 10MG) SC SCH (07:59)
--- NOTE | 2020-09-11 10:09 | IPNPDOC ---
Obstetrical Progress Note Date of Service Sep 11, 2020 Subjective 20yo at 32+1 weeks (EDC: 11/05/20). Admitted for moderate-severe symptomatic COVID+ status. Patient continues to have productive cough, pleuritic chest pain with deep inspiration, poor appetite and intermittent fever. Patient was significantly dehydrated upon her admission. She has been receiving IV fluids. Appetite has not returned to normal. Although she feels somewhat improved compared to when she initially presented, patient still feels uncomfortable. Denies sensation of labored breathing. Denies constant chest pain / pressure. +FM. No VB/LOF/uctx Of note, PMH significant for anemia and asthma Vitals: Continuous pulse ox on RA 91-95% during AM rounds / exam this morning. Normotensive, mild tachycardia 110-125bpm, currently afebrile A&Ox4, no acute distress H: S1S2, tachy L: CTA, slightly diminished at lung bases bilaterally Abd: soft,nt,nd, uterine fundal ht c/w/d and nontender Ext: no c/c/e See [facility] for labs OB US done on 09/10/20, BPP 8/8 (see official report) NST: Reactive, normal baseline, mod variability, no decels [place]: no PTL ctx pattern detected A/P: 20yo at 32+1 weeks EGA. COVID+. Symptomatic. Mild hypoxia. Current status is reassuring. -Since patient is periodically having O2 sats maintaining at 95% or below (range witnessed this AM 91-95%) at rest, the plan is to transfer her to isolation room on L&D unit for continuous monitoring and continuous pulse ox -Continue IV hydration; advance to reg diet as tolerated -Start steroids; initial dosing will be Betamethasone 12mg IM q24h x 2 doses. PO steroid course to follow, which will be managed by IM/hospitalist service. -Start supplemental O2 if/when patient's O2 sat is 95% or below on RA. -Repeat labs and imaging as indicated / per hospitalist recs. -Consider iron transfusion or blood transfusion for anemia. -Appreciate ongoing collaboration with IM/hospitalist service. Mihir Brown DO Objective Vital Signs Date Time Temp Pulse Resp B/P (MAP) Pulse Ox O2 Delivery O2 Flow Rate FiO2 09/11/20 07:41 98.2 119 17 985/86 (05) 65 Room Air MANUEL BROWN DO Sep 11, 2020 10:09
[2020-09-11] MEDS: BETAMETHASONE SOLUSPAN 6MG/ML 5ML VIAL (J0702 PER 3MG) IM SCH (10:42)
[2020-09-11 13:45] LABS: HEMATOCRIT 30.3 % (36.0-47.0); HEMOGLOBIN 9.4 g/dl (12.0-15.5); MEAN CORPUSCULAR HEMOGLOBIN 27.3 pg (27.0-33.0); MEAN CORPUSCULAR VOLUME 88.1 fl (80.0-96.0); PLATELET COUNT, AUTOMATED 291 10^3/uL (150-450); RED BLOOD COUNT 3.44 10^6/uL (4.00-5.40); WHITE BLOOD COUNT 6.5 10^3/uL (4.0-10.0)
--- NOTE | 2020-09-11 14:38 | IPNPDOC ---
Text Note Date of Service The patient was seen on 09/11/20. NOTE Subjective: 20-year-old female who is 32 weeks 1 day who presented the emergency department with 8-day history of flulike illness at home. Patient was found to be Covid positive. Patient had not been eating or drinking very well yesterday so the patient was held overnight. Patient is still maintaining her saturations greater than 95% on room air. Patient states that she is feeling better today than she was yesterday. Review of systems: General: Patient denies fevers HEENT: Patient denies headaches Cardiovascular: Patient denies chest pain Respiratory: Patient reports shortness of breath and a dry cough GI: Patient denies abdominal pain, nausea, vomiting, diarrhea : Patient denies increased frequency or pain with urination Extremities: Patient denies swelling or pain in extremities Neurological: Patient denies numbness or tingling in legs Physical exam: Vitals: See below General: Alert and oriented female who was sitting up in bed when I walked in. Patient not appear to be in any acute distress. HEENT: Normocephalic, atraumatic, moist mucous membranes. Neck: No lymphadenopathy or thyromegaly Cardiac: Regular rate and rhythm, no murmurs, normal S1, normal S2 Pulm: Clear to auscultation bilaterally. No wheezes, rhonchi, rales Abd: Nondistended, nontender to palpation, normal bowel sounds, gravid Ext: No edema bilateral lower extremities Labs: See below Imaging: Biophysical profile performed on 09/10/2020 was reported shows single intrauterine gestation in cephalic presentation. biophysical profile is normal with a score of 8/8. growth chart indicating normal interval growth. Assessment/plan: 20-year-old female who is 32 weeks 1 day who was diagnosed with COVID- 19 pneumonia 1. COVID-19 pneumonia. Patient has not required any oxygen however, patient's pulse ox was borderline at about 94 to 96% today. Because of this, patient was transferred to labor and delivery for continuous monitoring. Since being moved to labor and delivery, patient maintains on room air. In speaking with Patel Brown of [employer], we will start betamethasone 12 mg today and 12 mg 24 hours later and then patient can be started on steroid therapy after that for 5 to 7 days. 2. Dehydration most likely secondary to poor p.o. intake due to COVID-19. Patient has been eating better and is feeling better today. 3. Third trimester . Hospitalists are on consult for this patient for medical issues as [employer] HEL[employer] will continue to manage the . 4. History of asthma. Does not appear in exacerbation. DVT Prophylaxis: Lovenox Disposition: Pending steroids. Possible discharge tomorrow. VS,Fishbone, I+O VS, Fishbone, I+O Laboratory Tests 09/11/20 13:30 Vital Signs Date Time Temp Pulse Resp B/P (MAP) Pulse Ox O2 Delivery O2 Flow Rate FiO2 09/11/20 11:10 97 09/11/20 10:35 97.6 96 18 105/60 (75) Room Air I&O- Last 24 Hours up to 6 AM 09/11/20 06:00 Intake Total 2520 ml Output Total 1250 ml Balance 1270 ml JOSTIN ELDRIDGE DO Sep 11, 2020 14:37
[2020-09-11 16:09] LABS: MYCOPLASMA PNEUMONIAE IgG <100 U/mL (0-99); MYCOPLASMA PNEUMONIAE IgM <770 U/mL (0-769)
[2020-09-12] VITALS (23 sets, daily range): BP systolic 91–118; BP diastolic 53–67; O2SAT 95–99
[2020-09-12] MEDS: LR 1,000 ML IV SCH ×2 (00:31→04:35)
[2020-09-12 07:09] LABS: HEMATOCRIT 28.5 % (36.0-47.0); HEMOGLOBIN 8.8 g/dl (12.0-15.5); MEAN CORPUSCULAR HEMOGLOBIN 27.2 pg (27.0-33.0); MEAN CORPUSCULAR HGB CONC 30.9 g/dl (32.0-36.5); MEAN CORPUSCULAR VOLUME 88.2 fl (80.0-96.0); PLATELET COUNT, AUTOMATED 305 10^3/uL (150-450); RED BLOOD COUNT 3.23 10^6/uL (4.00-5.40); WHITE BLOOD COUNT 5.2 10^3/uL (4.0-10.0)
[2020-09-12 07:19] LABS: INR 0.95; PROTHROMBIN TIME 13.1 SECONDS (12.7-14.5)
[2020-09-12 07:20] LABS: PARTIAL THROMBOPLASTIN TIME 26.1 SECONDS (25.9-37.0)
[2020-09-12 08:00] LABS: ALBUMIN 2.1 GM/DL (3.2-5.2); BILIRUBIN,DIRECT 0.5 MG/DL (0.0-0.2); BILIRUBIN,TOTAL 0.6 MG/DL (0.2-1.0); TOTAL PROTEIN 5.3 GM/DL (6.4-8.2)
[2020-09-12] MEDS: ENOXAPARIN 40MG/0.4ML SYRINGE (J1650 PER 10MG) SC SCH (08:12)
[2020-09-12] MEDS: BETAMETHASONE SOLUSPAN 6MG/ML 5ML VIAL (J0702 PER 3MG) IM SCH (11:18)
[2020-09-12 13:26] LABS: CK-MB VALUE MASS < 1.0 NG/ML (<3.6); CPK CREATINE PHOSPHOKINASE 13 U/L (26-192); MB/CK RELATIVE INDEX 7.69 (< OR =4); TROPONIN I < 0.02 NG/ML (< 0.10)
--- NOTE | 2020-09-12 14:45 | IPNPDOC ---
Text Note Date of Service The patient was seen on 09/12/20. NOTE Subjective: Patient is a 20-year-old female who is 32 weeks 2 days who presented the emergency department with an 8-day history of flulike illness at home. Patient was found to be Covid positive. Patient had elevated BNP that was found on morning labs. Patient did not complain of any chest pain. Patient did receive a large amount of IV fluids. Patient states that she is feeling better but is tired today. Patient is otherwise doing well. Patient does report movement. Review of systems: General: Patient denies fevers HEENT: Patient denies headaches Cardiovascular: Patient denies chest pain Respiratory: Patient reports her shortness of breath and cough have improved GI: Patient denies abdominal pain, nausea, vomiting, diarrhea : Patient denies increased frequency or pain with urination Extremities: Patient denies swelling or pain in extremities Neurological: Patient denies numbness or tingling in legs Physical exam: Vitals: See below General: Alert and oriented female who was laying in bed when I walked in the room. Patient did not appear to be in any acute distress. HEENT: Normocephalic, atraumatic, moist mucous membranes. Neck: No lymphadenopathy or thyromegaly Cardiac: Regular rate and rhythm, no murmurs, normal S1, normal S2 Pulm: Clear to auscultation bilaterally. No wheezes, rhonchi, rales Abd: Gravid abdomen that was nontender to palpation Ext: No edema bilateral lower extremities Labs: See below Imaging: No new imaging has been performed Assessment/plan: 20-year-old female who is 32 weeks 2 days who was diagnosed with COVID- 19 pneumonia 1. COVID-19 pneumonia. Patient has not required any oxygen however, patient's pulse ox was borderline. [facility]. Patient's monitoring has been within normal limits. Patient received betamethasone 12 mg yesterday and today. Patient was started on prednisone 40 mg for 8 days starting tomorrow. We will continue to monitor. 2. Dehydration most likely secondary to poor p.o. intake due to COVID-19. Patient's been eating better and is feeling better today. 3. Elevated BNP. Cardiac markers were ordered and were negative. Echocardiogram was ordered and performed today. We are awaiting official read from cardiology however, it does appear that the echo was within normal limits. Repeat BNP for the morning. 4. Anemia. Patient is chronically anemic due to and her hemoglobin is about her baseline from July. 5. Third trimester . Hospitals are on consult for the patient for the medical issues as [facility] will continue to manage the patient's . 6. History of asthma. Does not appear in exacerbation. DVT Prophylaxis: Lovenox Disposition: Pending repeat BNP. VS,Beste, I+O VS, Beste, I+O Laboratory Tests 09/12/20 06:53 Vital Signs Date Time Temp Pulse Resp B/P (MAP) Pulse Ox O2 Delivery O2 Flow Rate FiO2 09/12/20 12:31 97.2 96 18 102/53 (69) 97 Room Air I&O- Last 24 Hours up to 6 AM 09/12/20 06:00 Intake Total 1260 ml Output Total 950 ml Balance 310 ml JOSTIN ELDRIDGE DO Sep 12, 2020 14:45
--- NOTE | 2020-09-12 18:14 | IPNPDOC ---
Text Note Date of Service The patient was seen on 09/12/20. NOTE Progress note, HD 4 Valeria is a 20yo at 32w2d (EDC: 11/05/20) admitted for moderate-severe symptomatic COVID+ status. She was found to be Covid+ after having flu-like illn ess for 8 days prior to presentation. Patient was significantly dehydrated upon her admission. She has been receiving IV fluids. She states today she feels much improved compared to the prior days. Last fever was on 09/10. Appetite has improved. Only feels difficulty of breathing when she lies flat, at an incline she breathes easily. +FM. No VB/LOF/ctx. No chest pain. PMHx significant for anemia and asthma Vitals: Continuous pulse ox on RA 95-99%. Normotensive, normal pulse, afebrile A&Ox4, no acute distress. lying in bed comfortably. conversant. Abdomen: soft, non-tender, gravid Extremities: no c/c/e NST: Reactive, normal baseline, mod variability, no decels [place]: no ctx pattern Labs: 09/12 CBC: WBC 5.2, H/H 8.8/28.5, plt 305 BNP 454 total CK 13 troponin < 0.02 09/09 Covid + blood cultures negative x2 urinalysis contaminated 13 squam Radiology: Cardiac echo report pending 09/10 OB u/s: BPP 8/8, EFW 90%ile (5lb7oz) 09/09 CXR: bilateral infiltrates R>L 09/09 Gallbladder u/s: moderate sludge, no gallbladder wall thickening or stones 09/09 Duplex LE u/s: no evidence of DVT Assessment: Valeria is a 20yo at 32w2d (EDC: 11/05/20) admitted for moderate-severe symptomatic COVID+ status. She is clinically much improved today, satting 95-99% in RA. Afebrile. She was incidentally noted today to have an elevated BNP (lab was not obtained prior to today), so cardiac echo was performed at bedside (report pending) and cardiac markers obtained. Troponin negative. status remains reassuring. Plan: -Continue observation on L&D. Possible discharge home tomorrow depending on cardiac echo report and repeat BNP. -Intermittent monitoring if remains reassuring and vitals q4hr -Continue IV hydration; regular diet as tolerated -Patient is now Betamethasone complete as of 10am today. PO steroid course will be initiated and managed by IM/hospitalist service. -Lovenox for DVT prophylaxis -Start supplemental O2 if/when patient's O2 sat is 95% or below on RA. -Repeat labs and imaging as indicated / per hospitalist recs. -Consider iron infusion or blood transfusion for anemia. -Appreciate ongoing collaboration with IM/hospitalist service. Adri Cooper MD VS,Sandy, I+O VSSandy I+O Laboratory Tests 09/12/20 06:53 Vital Signs Date Time Temp Pulse Resp B/P (MAP) Pulse Ox O2 Delivery O2 Flow Rate FiO2 09/12/20 16:05 97.7 76 18 107/62 (77) 97 Room Air I&O- Last 24 Hours up to 6 AM 09/12/20 06:00 Intake Total 1260 ml Output Total 950 ml Balance 310 ml Adri Cooper MD Sep 12, 2020 18:14
[2020-09-13 00:22] VITALS: BP 105/57
[2020-09-13 03:51] VITALS: BP 115/56
[2020-09-13] MEDS: ENOXAPARIN 40MG/0.4ML SYRINGE (J1650 PER 10MG) SC SCH (08:35)
[2020-09-13 08:48] VITALS: BP 106/50
[2020-09-13] MEDS ORDERED: predniSONE 20 MG TAB PO SCH (09:00)
[2020-09-13 13:07] LABS: BODY FLUID CULTURE Not indicated. (.); LEGIONELLA ANTIGEN URINE Negative (Negative); ORGANISM ID Not indicated. (.); SPECIMEN SOURCE Urine (.); URINE STREP PNEUMONIAE ANTIGEN Negative (Negative)
--- NOTE | 2020-09-13 13:45 | IPNPDOC ---
Text Note Date of Service The patient was seen on 09/13/20. NOTE Subjective: Patient is a 20-year-old female who is 32 weeks 3 days who presents to the emergency department on 09/09/2020 with 8-day history of flulike illness at home. Patient was found to be Covid positive. Patient had elevated BNP that was found on labs yesterday, 09/12/2020. Patient does not complain of any chest pain. Patient actually states today that she is feeling the best she has felt over the past few days. Patient states that during the day, she has no shortness of breath and is able to walk around the room without any difficulty. Patient states that night she will have mild difficulty breathing if she gets up to go the bathroom. Patient says she recovers quickly after getting back into bed. Patient's oxygenation did not fall throughout the night. Patient is otherwise feeling well. Patient has been afebrile for many days at this point. Patient has had no acute events and the monitoring has been within normal range. Review of systems: General: Patient denies fevers HEENT: Patient denies headaches Cardiovascular: Patient denies chest pain Respiratory: Patient reports shortness of breath at night as above but denies shortness of breath during the day GI: Patient denies abdominal pain, nausea, vomiting, diarrhea : Patient denies increased frequency or pain with urination Extremities: Patient denies swelling or pain in extremities Neurological: Patient denies numbness or tingling in legs Physical exam: Vitals: See below General: Alert and oriented female who was laying in bed when I walked in the room. Patient did not appear to be in any acute distress. HEENT: Normocephalic, atraumatic, moist mucous membranes. Neck: No lymphadenopathy or thyromegaly Cardiac: Regular rate and rhythm, no murmurs, normal S1, normal S2 Pulm: Clear to auscultation bilaterally. No wheezes, rhonchi, rales Abd: Gravid abdomen that is nontender to palpation. Ext: No edema bilateral lower extremities Labs: See below Imaging: No new imaging has been performed Assessment/plan: 20-year-old female who is 32 weeks 2 days who was diagnosed with COVID- 19 pneumonia 1. COVID-19 pneumonia. Patient has not been requiring any oxygen however patient's pulse ox was borderline a few days ago so the patient was transferred to labor and delivery for continuous monitoring. monitoring has been within normal limits. Patient received betamethasone 12 mg on 09/11 and 09/12/2020. Today was day 1 of an 8-day course of prednisone 40 mg. Patient is clinically doing well. Patient does not have any chest pain or shortness of breath during the day. Patient says that this is the best that she has felt. Patient will continue with prednisone for 7 more days and should be closely followed outpatient. 2. Dehydration most likely secondary to poor p.o. intake due to COVID-19. Patient is eating better and is feeling back close to her normal self. 3. Elevated BNP. Cardiac markers were ordered and were negative. Echocardiogram was performed and although the read has not been dictated in the chart, I did speak with the gelatin powder mixer who read the echocardiogram, Dr. Aguiar, who said that the echocardiogram showed a normal ejection fraction and normal left ventricular motion with a trace pericardial effusion not causing tamponade and some trace mitral regurgitation. Otherwise it was a normal echocardiogram. I did reach out to maternal- medicine at [facility] in [place], [place] who stated that obstetrically the patient seems fine and that the elevated BNP is more of a medicine question. At this time, the patient appears clinically well and has not had any evidence of left ventricular strain on echocardiogram. At this time, I believe the patient can be discharged and closely followed outpatient. Elevated proBNP in has been shown although the levels u sually will return to the same level as there non age-matched peers after about 23 weeks of . Based on the expert analysis from September 04, 2019 and the [employer] in regards to BNP and COVID-19, "abnormalities do not necessarily reflect heart failure or acute myocardial infarction. Marked elevation arise in either marker may support clinical yady gment regarding involvement of cardiovascular system and prognosis in general. This can be used to support decision regarding triage and subsequent management including the use of cardiac imaging, physical exam encounters, and gelatin powder mixer collaboration." 4. Anemia. Patient is chronically anemic due to her and her hemoglobin is around her baseline from July. 5. Third trimester . Hospitalists are on consult for the patient's medical issue. Patient's has been normal up to this point. Patient is still having movement. 6. History of asthma. Does not appear in exacerbation today. DVT Prophylaxis: Lovenox Disposition: Patient can be discharged home today with close follow-up. Patient will need to quarantine based on the recommendations of public health. VS,Fishbone, I+O VS, Fishbone, I+O Vital Signs Date Time Temp Pulse Resp B/P (MAP) Pulse Ox O2 Delivery O2 Flow Rate FiO2 09/13/20 08:48 97.9 76 18 106/50 (68) 100 Room Air I&O- Last 24 Hours up to 6 AM 09/13/20 06:00 Intake Total 2340 ml Output Total 1200 ml Balance 1140 ml JOSTIN ELDRIDGE DO Sep 13, 2020 13:45
--- NOTE | 2020-09-13 14:23 | DS.PDOC ---
Discharge Summary General Date of Admission Sep 09, 2020 at 20:32 Date of Discharge September 13, 2020 Discharge Summary PROCEDURES PERFORMED DURING STAY: None ADMITTING DIAGNOSES: 1. Third trimester 2. Covid19 infection DISCHARGE DIAGNOSES: 1. 32w2d 2. Covid19 infection, improvement of symptoms COMPLICATIONS/CHIEF COMPLAINT: Covid-19 Affecting In Third Trimester. HISTORY OF PRESENT ILLNESS: Ms Rico was admitted from emergency department 09/09/2020 after 8 days of flu like illness at home. HOSPITAL COURSE: She reports improvement in symptoms showing adequate oxygen saturation throughout her stay. Is able to be out of bed independently with minimal shortness of breath ambulating in her room that resolves with rest. She has remained afebrile for many days. monitoring has been reassuring, Cat I. Her BNP was found to be elevated with a normal echocardiogram showing trace pericardial effusion without tamponade. Per consult [facility], Dr De La Garza and Dr Brown, LEÓN for discharge home. DISCHARGE MEDICATIONS: Please see below. ALLERGIES: Please see below. PHYSICAL EXAMINATION ON DISCHARGE: VITAL SIGNS: Please see below. GENERAL: Afebrile HEENT: No headaches CARDIOVASCULAR EXAMINATION: Denies chest pain, normotensive RESPIRATORY EXAMINATION: Clear and unlabored at rest. Mild shortness of breath at night that resolves with rest. ABDOMINAL EXAMINATION: Gravid, appropriate for gestation EXTREMITIES: Equal strength and motion SKIN: Intact NEUROLOGICAL EXAMINATION: Grossly intact PSYCHIATRIC EXAMINATION: Appropriate LABORATORY DATA: Please see below. PROGNOSIS: Good ACTIVITY: As tolerated. Maintain quarantine till 09/23 per consult [facility] DIET: As tolerated DISCHARGE PLAN: To see [facility] on [facility] Wednesday for f/u BNP DISPOSITION: Home with family support DISCHARGE INSTRUCTIONS: 1. Rest, hydrate. 2. Call with fever, nausea, vomiting, decreased movement, increased shortness of breath. 3. Make appt with [facility] 2 wks. 4. Continue Lovenox 40mg sc daily x 1 wk. Prednisone 40mg daily x 7 days. DISCHARGE CONDITION: Stable TIME SPENT ON DISCHARGE: 10 minutes. Vital Signs/I&Os Vital Signs Date Time Temp Pulse Resp B/P (MAP) Pulse Ox O2 Delivery O2 Flow Rate FiO2 09/13/20 08:48 97.9 76 18 106/50 (68) 100 Room Air I&O- Last 24 Hours up to 6 AM 09/13/20 06:00 Intake Total 2340 ml Output Total 1200 ml Balance 1140 ml Laboratory Data Labs 24H Laboratory Tests 2 09/13/20 07:47: HZ-Rhz-N-Type Natriuretic Peptide 444H Microbiology Microbiology 09/09/20 Respiratory Virus Panel (PCR) (JANELL) - Final, Complete SARS-CoV-2 (COVID 19) 09/09/20 Blood Culture - Preliminary, Resulted No Growth after 72 hours. All specime... 09/09/20 Blood Culture - Preliminary, Resulted No Growth after 72 hours. All specime... Discharge Medications Scheduled Ferrous Gluconate (Ferrous Gluconate) 324 Mg Tablet, 324 MG PO BID, (Reported) Scheduled PRN Albuterol Sulfate (Proventil Hfa) 6.7 Gm Hfa.aer.ad, 2 PUFF INH Q4H PRN for SOB/WHEEZING, (Reported) Allergies Coded Allergies: No Known Allergies (Unverified , 06/06/18) Caroline Basilio CNM Sep 13, 2020 14:23
[2020-09-13] MEDS ORDERED: PRED20TA PO (14:26)
[2020-09-13] MEDS ORDERED: LOVE1INJ SC (14:26)
--- NOTE | 2020-09-15 10:36 | ECHO ---
ECHOCARDIOGRAM DATE OF PROCEDURE: 09/12/2020 Age: 20 Gender: Female Height: Weight: REFERRING PHYSICIAN: Mode Major D.O. PATIENT LOCATION: Room 3134. REASON FOR THE TESTING: Elevated BNP, , positive COVID-19. MEASUREMENTS: 2D Measurements: IVS 1.1 cm LV 4.5 cm LVPW 0.93 cm LA 3.6 cm Aorta 2.7 cm IVC 1.2 cm Doppler Measurements: Peak velocity across the aortic valve 1.5 m/sec Peak velocity across the LVOT 0.9 m/sec Mitral E 1.0 Mitral A 0.65 with a ratio of 1.6 2D COMMENTS: 1. Normal left ventricular size, wall thickness and normal global left ventricular systolic function. The estimated left ventricular systolic ejection fraction is 60-65%. 2. Normal left atrium. Normal right atrium and right ventricle. 3. The atrial septum appeared to be normal without evidence of defect or shunt. 4. Normal aortic root. 5. Trace pericardial effusion noted. No evidence of cardiac tamponade. 6. The aortic valve, mitral valve, tricuspid valve and pulmonic valve appeared to be normal, as well as the proximal pulmonary artery branches. 7. The inferior vena cave was normal in size. Central venous pressure is most likely normal. DOPPLER: It detects trace mitral regurgitation and mild tricuspid regurgitation. Assessment of the left ventricular diastolic function was normal. IMPRESSION: 1. Normal global left ventricular systolic and diastolic function. 2. Trace mitral regurgitation. 3. Mild tricuspid regurgitation. 4. Trace pericardial effusion. No evidence of cardiac tamponade. 5. The report was discussed with the hospitalist covering on 09/13/2020.
== END 2020-09-13 15:15 | disposition home or self-care (01) | DRG 831 ==
LOC: M ED 13:59 → EEVIPCON 20:32 → M ED INP 20:32 → M 4MAIN 21:50 → M LDI 09-11 10:30
PROVIDERS: ADMIT Advanced Practice Midwife; ATTEND Advanced Practice Midwife
DX: O98.513 Other viral diseases complicating pregnancy, third trimester (principal); U07.1 COVID-19; J12.82 Pneumonia due to coronavirus disease 2019; O99.513 Diseases of the respiratory system complicating pregnancy, third trimester; E86.0 Dehydration; O99.283 Endocrine, nutritional and metabolic diseases complicating pregnancy, third trimester; Z3A.32 32 weeks gestation of pregnancy; J45.909 Unspecified asthma, uncomplicated; O99.013 Anemia complicating pregnancy, third trimester; D64.9 Anemia, unspecified

== ENCOUNTER → 2020-09-24 | Outpatient (CLI) | payer OTHER ==
[~2020-09-24] MED LIST changes: +FERR32TA PO; +LOVE1INJ SC; +PRED20TA PO
[2020-09-24 10:37] LABS: HEMATOCRIT 30.1 % (36.0-47.0); HEMOGLOBIN 9.1 g/dl (12.0-15.5); MEAN CORPUSCULAR HEMOGLOBIN 26.3 pg (27.0-33.0); MEAN CORPUSCULAR HGB CONC 30.2 g/dl (32.0-36.5); PLATELET COUNT, AUTOMATED 373 10^3/uL (150-450); RED BLOOD COUNT 3.46 10^6/uL (4.00-5.40); WHITE BLOOD COUNT 10.8 10^3/uL (4.0-10.0)
== END ==
LOC: M PLALAB 07:47
PROVIDERS: ATTEND Obstetrics & Gynecology
DX: O99.013 Anemia complicating pregnancy, third trimester (principal)
CPT/HCPCS: 36415; 85027; G0463

== ENCOUNTER 2020-09-27 00:13 | Outpatient (CLI) | payer OTHER ==
--- NOTE | 2020-09-27 00:59 | IPNPDOC ---
Text Note Date of Service The patient was seen on 09/27/20. NOTE Labor and Delivery Triage Note: S: 20-year-old 1 at 34 weeks presents with c/o contractions f27gios and pelvic pressure. Denies vaginal bleeding or LOF. Reports active movement. O: vss, AF Cat 1 tracing, rare contraction Gen: well appearing, NAD Abd: gravid, soft, nttp cx: [long/ closed] A/P: 20-year-old G1 at 34 weeks, not in PTL reassuring status -home with PTL precautions and FKCs. -f/u at next OB appt MD ARSENIO Devlin KENYA MD. Sep 27, 2020 00:59
== END 2020-09-27 01:10 | disposition home or self-care (01) ==
LOC: M LDO 00:13
PROVIDERS: ATTEND Obstetrics & Gynecology
DX: O26.893 Other specified pregnancy related conditions, third trimester (principal); R10.2 Pelvic and perineal pain; Z3A.34 34 weeks gestation of pregnancy
CPT/HCPCS: 59025; G0378; G0463

== ENCOUNTER → 2020-10-08 | Outpatient (REF) | payer OTHER | LOC: M SFHCWAGY 13:13 | PROVIDERS: ATTEND Specialist | DX: Z34.03 Encounter for supervision of normal first pregnancy, third trimester (principal) | CPT/HCPCS: 87081; G0463 ==

== ENCOUNTER 2020-10-22 14:16 | Outpatient (CLI) | payer OTHER ==
[~2020-10-22] VITALS: Ht 160 cm; Wt 61.1 kg
[2020-10-22] VITALS (7 sets, daily range): BP systolic 86–127; BP diastolic 51–58
[2020-10-22] MEDS ORDERED: HOME MED LIST COMPLETE! XX SCH (14:40)
[2020-10-22] MEDS ORDERED: MORPHINE 10 MG/ML 1ML VIAL (J2270) SC ONE (15:50)
[2020-10-22] MEDS ORDERED: PROMETHAZINE INJ 25 MG/ML VIAL (J2550) IV PRN (15:50)
[2020-10-22] MEDS ORDERED: MORPHINE 10 MG/ML 1ML VIAL (J2270) IV ONE (15:50)
[2020-10-22] MEDS ORDERED: LR 1,000 ML IV SCH (16:30)
--- NOTE | 2020-10-22 22:13 | IPNPDOC ---
Text Note Date of Service The patient was seen on 10/22/20. NOTE Labor and Delivery Triage Note: S: [24yo at 33w5d] presents with c/o contractions [id number] and pelvic pressure. Denies vaginal bleeding or LOF. Reports active movement. O: vss, AF no ctx Cat 1 tracing Gen: well appearing, NAD Abd: gravid, soft, nttp cx: [long/ closed] [SSE: [GC culture collected]] A/P: [24yo ] not in PTL reassuring status -home with PTL precautions and FKCs. -f/u at nxt OB appt Tory Canseco MD VS,Sandy, I+O VSSandy I+O Vital Signs Date Time Temp Pulse Resp B/P (MAP) Pulse Ox O2 Delivery O2 Flow Rate FiO2 10/22/20 20:33 117 119/56 (77) 10/22/20 19:28 98.2 14 Room Air 10/22/20 15:23 100 TORY CANSECO MD. Oct 22, 2020 22:13
== END 2020-10-22 22:11 | disposition home or self-care (01) ==
LOC: M LDO 14:16
PROVIDERS: ATTEND Obstetrics & Gynecology
DX: O47.03 False labor before 37 completed weeks of gestation, third trimester (principal); Z3A.33 33 weeks gestation of pregnancy
CPT/HCPCS: 59025; G0378; G0463; J2270

== ENCOUNTER 2020-10-23 11:01 | Outpatient (CLI) | payer OTHER ==
[~2020-10-23] VITALS: Ht 160 cm; Wt 72.6 kg
[2020-10-23 11:14] VITALS: BP 111/58
[2020-10-23] MEDS ORDERED: LACTATED RINGER'S 1000 ML IV ONE (11:40)
[2020-10-23] MEDS ORDERED: MORPHINE 4 MG/ML 1ML VIAL/SYRINGE (J2270) IV PRN (11:40)
[2020-10-23] MEDS: ONDANSETRON 4MG/2ML VIAL IV PRN ×2 (12:57→19:46)
[2020-10-23 13:04] LABS: HEMATOCRIT 29.2 % (36.0-47.0); HEMOGLOBIN 9.2 g/dl (12.0-15.5); MEAN CORPUSCULAR HEMOGLOBIN 25.1 pg (27.0-33.0); MEAN CORPUSCULAR HGB CONC 31.5 g/dl (32.0-36.5); MEAN CORPUSCULAR VOLUME 79.6 fl (80.0-96.0); PLATELET COUNT, AUTOMATED 338 10^3/uL (150-450); RED BLOOD COUNT 3.67 10^6/uL (4.00-5.40); WHITE BLOOD COUNT 19.9 10^3/uL (4.0-10.0)
[2020-10-23 13:21] LABS: BLOOD UREA NITROGEN 5 MG/DL (7-18); CARBON DIOXIDE LEVEL 16 MEQ/L (21-32); CHLORIDE LEVEL 109 MEQ/L (98-107); CREATININE FOR GFR 0.42 MG/DL (0.55-1.30); GLUCOSE, FASTING 92 MG/DL (70-100); POTASSIUM SERUM 4.1 MEQ/L (3.5-5.1); SODIUM LEVEL 138 MEQ/L (136-145)
[2020-10-23 13:22] LABS: ALBUMIN 2.9 GM/DL (3.2-5.2); ALT/SGPT 18 U/L (12-78); BILIRUBIN,TOTAL 0.6 MG/DL (0.2-1.0); CALCIUM LEVEL 9.3 MG/DL (8.5-10.1); TOTAL PROTEIN 6.9 GM/DL (6.4-8.2)
--- NOTE | 2020-10-23 13:41 | REP ---
INDICATION: Left flank pain. COMPARISON: None. TECHNIQUE: Real-time sonographic evaluation of the kidneys with Doppler FINDINGS: Multiple ultrasonographic images of the right kidney show the right kidney to measure 11.8 x 6.1 x 6.5 cm. The renal cortical echotexture is unremarkable. There are no masses. There is good corticomedullary differentiation. There is moderate to severe hydronephrosis. There are no perinephric fluid collections. When evaluating the right kidney sludge was seen in the gallbladder. Multiple ultrasonographic images of the left kidney show the left kidney to measure 11 x 5.2 x 6 cm.. The renal cortical echotexture is unremarkable. There are no masses. There is good corticomedullary differentiation. There is no hydronephrosis. There are no perinephric fluid collections. IMPRESSION: 1. Moderate to severe right-sided hydronephrosis. 2. Sludge is identified in the gallbladder. <Electronically signed by Ras Goode > 10/23/20 [id number]
[2020-10-23] MEDS ORDERED: MEPERIDINE 50 MG/ML 1ML VIAL (J2175) IM ONE ×2 (15:10→20:15)
[2020-10-23] MEDS: LR 1,000 ML IV SCH ×2 (15:16→19:51)
[2020-10-23] MEDS ORDERED: MEPERIDINE INJ 25 MG/ML VIAL (J2175) As Ordered ONE ×2 (15:40→15:41)
[2020-10-23 16:59] VITALS: BP 115/56
[2020-10-23 17:02] LABS: AMYLASE 40 U/L (25-115); LIPASE 80 U/L (73-393)
[2020-10-23 17:36] LABS: APPEARANCE, URINE CLEAR (CLEAR); BACTERIA, URINE AUTO NEGATIVE (NEGATIVE); BILIRUBIN, URINE AUTO NEGATIVE (NEGATIVE); BLOOD, URINE BLOOD 1+ (NEGATIVE); COLOR, URINE YELLOW (YELLOW); GLUCOSE, URINE (UA) AUTO NEGATIVE (NEGATIVE); KETONE, URINE AUTO 2+ mg/dL (NEGATIVE); LEUKOCYTE ESTERASE, URINE AUTO NEGATIVE (NEGATIVE); MUCUS, URINE SMALL (NEGATIVE); NITRITE, URINE AUTO NEGATIVE (NEGATIVE); PROTEIN, URINE AUTO NEGATIVE (NEGATIVE); RBC, URINE AUTO 1 /HPF (0-3); SPECIFIC GRAVITY URINE AUTO 1.012 (1.002-1.035); SQUAMOUS EPITHELIAL CELL UR AU 0 /HPF (0-6); UROBILINOGEN, URINE AUTO 0.2 mg/dL (0.0-2.0); WBC, URINE AUTO 1 /HPF (0-3)
--- NOTE | 2020-10-23 18:39 | IPN ---
PROGRESS NOTE DATE: 10/23/2020 SUBJECTIVE: Valeria is a 20-year-old 2, para 0-0-1-0 at 38 weeks and 1 day by [place]WA of 11/05/2020 based on last menstrual period and confirmed by first trimester ultrasound. She presented to labor and delivery for the second day in a row with a report of contractions every three to five minutes. She reports significant pain is in the left flank area that wraps around by the left rib. She denies vaginal bleeding and leakage of fluid. The fetus has been active. She was seen on labor and delivery yesterday and had therapeutic rest and was discharged home. She reports she did not sleep at all last night due to pain and contractions. Her [facility] was [facility] in the first trimester. Her course has been complicated by anemia as well as positive COVID status which she was hospitalized for in September. OBSTETRIC HISTORY: 2017 elective termination of . OBSTETRIC LABS: Blood type is A+. Antibody screen is negative. Syphilis nonreactive. Her initial chlamydia was positive. With repeat test of care after treatment, gonorrhea and chlamydia were negative. Hepatitis B surface antigen negative. Hepatitis C antibody nonreactive. HIV nonreactive. Rubella immune. GBS is negative. PAST MEDICAL HISTORY: Asthma, ovarian cyst, and positive COVID-19 on August 31, 2020. PAST SURGICAL HISTORY: Fractured left arm, ovarian cystectomy. FAMILY HISTORY: Noncontributory. SOCIAL HISTORY: The patient is a nonsmoker. She does report a history of vaping. However, denies use during . Denies alcohol and drug use. Again, positive chlamydia during this with a test of cure negative. She denies history of abuse, physical, sexual, and emotional. ALLERGIES: No known drug allergies. CURRENT MEDICATIONS: vitamin. OBJECTIVE: The patient is afebrile. Temperature 98.1, pulse 101, respirations 20, and BP is 115/56. She is alert and oriented times three. She did appear uncomfortable arriving to labor and delivery, writhing in the bed. The heart rate is 130 with moderate variability, positive accelerations, negative decelerations. Contractions every two to four minutes. Sterile vaginal exam: Unchanged from yesterday's exam, 2 cm dilated, 80% effaced, -2 station. No show with the exam. Posterior and soft. Today her CBC with a white blood count of 19.9, hemoglobin 9.2, hematocrit 29.2, platelets 338. Her creatinine is normal at 0.42. AST is 19, ALT is 18, alkaline phosphatase 242. Her lipase is 80, amylase 40. Her urinalysis has 2+ ketones and 1+ blood. Everything else is negative. She did undergo a renal ultrasound that demonstrated moderate to severe hydronephrosis of the right kidney. While evaluating the right kidney it was noted that the gallbladder had sludge. There is no hydronephrosis of the left kidney. ASSESSMENT: Intrauterine at 38-1/7 weeks, heart rate category 1, likely gallstones, cholelithiasis. Not in active labor. PLAN: Continue to observe the patient, treat her pain as necessary. Continue IV hydration. Attempt to intake low-fat diet for dinner. MTDD
[2020-10-23 18:48] VITALS: BP 98/65
[2020-10-23 19:23] VITALS: BP 136/75
[2020-10-23 20:25] VITALS: BP 121/60
[2020-10-24] VITALS (13 sets, daily range): BP systolic 64–158; BP diastolic 55–74
[2020-10-24] MEDS ORDERED: MEPERIDINE 50 MG/ML 1ML VIAL (J2175) IM ONE (01:45)
[2020-10-24] MEDS: ONDANSETRON 4MG/2ML VIAL IV PRN ×3 (02:14→22:07)
[2020-10-24] MEDS: LR 1,000 ML IV SCH (02:42)
[2020-10-24] MEDS ORDERED: PERCOCET 5MG/325MG TAB PO PRN (06:45)
[2020-10-24] MEDS: PERCOCET 5MG/325MG TAB PO PRN ×4 (07:21→21:21)
[2020-10-24] MEDS ORDERED: cefTRIAXone SOD 1GM VIAL (J0696 PER 250MG) IM SCH (08:20)
--- NOTE | 2020-10-24 08:30 | IPNPDOC ---
Text Note Date of Service The patient was seen on 10/24/20. NOTE Patient continues to have left flank pain and associated nausea. Remains afeb rile at this time. Will start ceftriaxone 1gm IV q24hr for suspected dx of pyelonephritis. Discussed plan with patient and she is agreeable at this time. VS,Fishbone, I+O VS, Fishbone, I+O Laboratory Tests 10/23/20 12:32 Vital Signs Date Time Temp Pulse Resp B/P (MAP) Pulse Ox O2 Delivery O2 Flow Rate FiO2 10/24/20 08:04 18 10/24/20 06:56 106 131/67 (88) Room Air 10/23/20 19:23 98.6 I&O- Last 24 Hours up to 6 AM 10/24/20 06:00 Intake Total 2000 ml Balance 2000 ml RENETTA ACEVES MD Oct 24, 2020 08:30
[2020-10-24] MEDS ORDERED: cefTRIAXone SOD 1GM VIAL (J0696 PER 250MG) IV SCH (09:00)
[2020-10-24] MEDS: cefTRIAXone SOD 1 GM in D5W MINI-BAG PLUS 50 ML IV SCH (09:15)
[2020-10-24] MEDS: NS 1,000 ML IV SCH ×2 (09:15→16:57)
[2020-10-25] MEDS: PERCOCET 5MG/325MG TAB PO PRN ×2 (04:03→08:20)
[2020-10-25] MEDS: NS 1,000 ML IV SCH (04:03)
[2020-10-25 04:05] VITALS: BP 122/81
[2020-10-25 06:21] VITALS: BP 108/54
[2020-10-25 07:36] VITALS: BP 114/62
[2020-10-25] MEDS: ONDANSETRON 4MG/2ML VIAL IV PRN (08:59)
[2020-10-25] MEDS: cefTRIAXone SOD 1 GM in D5W MINI-BAG PLUS 50 ML IV SCH (08:59)
[2020-10-25] MEDS ORDERED: cefTRIAXone SOD 1GM VIAL (J0696 PER 250MG) IV SCH (09:00)
== END 2020-10-25 11:10 | disposition home or self-care (01) ==
LOC: M LDO 11:01
PROVIDERS: ATTEND Advanced Practice Midwife
DX: O26.613 Liver and biliary tract disorders in pregnancy, third trimester (principal); K82.8 Other specified diseases of gallbladder; O26.833 Pregnancy related renal disease, third trimester; N13.30 Unspecified hydronephrosis; Z3A.38 38 weeks gestation of pregnancy
CPT/HCPCS: 59025; 76775; 80053; 81001; 82150; 83690; 85027; 87086; 96374; 96375; G0463; J0696; J2175; J2270; J2405

== ENCOUNTER 2020-10-29 12:03 | Inpatient (IN) | payer OTHER ==
[~2020-10-29] VITALS: Ht 157.5 cm; Wt 74.9 kg
[2020-10-29] VITALS (25 sets, daily range): BP systolic 97–141; BP diastolic 57–80
--- NOTE | 2020-10-29 14:07 | HPEPDOC ---
Obstetrical History & Physical General Date of Admission Oct 29, 2020 at 13:30 History of Present Illness HPI Pt is a 20yo F at 39+0 weeks by LMP consistent with a 8 week US (EDC=11/05/20) who presents with regular contractions for the last several hours. She denies bleeding or significant fluid loss. Chief Complaint: Contractions, term Information Provided By: Patient Age: 20 : 2 Term: 0 Pre-term: 0 Abortions: 1 Livin Care Care: Good Care Dating Final EDC: Nov 05, 2020 Final EDC by: LMP, 1st trimester (US) Past Medical History Past Obstetrical History : Past Obstetrical History: Primgravida Past Medical History Medical History Chlamydia treated April 2020 Induced 2017 Surgical Hx: L arm surgery post fracture L ovarian cyst removal 2019 Covid-19 during 3rd trimester this Social History Marital Status: Family situation: Spouse/partner home Psychosocial History: No pertinent psych hx, Anxiety Allergies Coded Allergies: No Known Allergies (Unverified , 10/22/20) Medications Scheduled Ferrous Gluconate (Ferrous Gluconate) 324 Mg Tablet, 324 MG PO BID Scheduled PRN Albuterol Sulfate (Proventil Hfa) 6.7 Gm Hfa.aer.ad, 2 PUFF INH Q4H PRN for SOB/WHEEZING Physical Examination Physical Examination GENERAL: Alert and oriented times three. BREAST: . ABDOMEN: Gravid and non-tender to touch. FETUS: Is vertex (VTX) by sterile vaginal examination (SVE), fetus is vertex (VTX) by [place]. HEART RATE: Regular rate and rhythm. LUNGS: Clear to auscultation (CTA). EXTREMITIES: No edema. No clonus. Deep tendon reflexes (DTRs) + . Laboratory Data 24H LABS Laboratory Tests 2 10/29/20 13:40: Serology Scanned Report Hepatitis B Testing Pertinent Laboratoy Data Blood Type: A+ Group B Streptococcus: Negative Vaginal Examination Dilation: 3 cm Effacement: 100% Station: -1 Cervical Consistency: Soft Cervical Position: Middle Presentation: Cephalic presentation Assessment Variability: Moderate Accelerations: Positive Decelerations: None Tocometer Contractions: Yes Frequency: regular Assessment/Plan Assessment Pt is a 20-year-old (G)0 para (P)0-0-1-0 at 39+0 weeks by 8-week ultrasound. Presents to Labor and Delivery (L&D) in active labor. 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 Diet: regular Group B Streptococcus (GBS) [negative]. Labs and intravenous (IV) per unit protocol. Counseled on Pitocin and induction of labor (IOL). Anticipate [normal spontaneous delivery (). C-S as appropriate. STARR PEREZ [facility] [place] Oct 29, 2020 14:06
[2020-10-29] MEDS ORDERED: OXYTOCIN DRIP 30 UNITS in IV 1 EA IV SCH (15:20)
[2020-10-29 17:41] LABS: HEMATOCRIT 27.2 % (36.0-47.0); HEMOGLOBIN 8.4 g/dl (12.0-15.5); MEAN CORPUSCULAR HEMOGLOBIN 24.3 pg (27.0-33.0); MEAN CORPUSCULAR HGB CONC 30.9 g/dl (32.0-36.5); MEAN CORPUSCULAR VOLUME 78.8 fl (80.0-96.0); PLATELET COUNT, AUTOMATED 323 10^3/uL (150-450); RED BLOOD COUNT 3.45 10^6/uL (4.00-5.40); WHITE BLOOD COUNT 9.4 10^3/uL (4.0-10.0)
[2020-10-29] MEDS: LR 1,000 ML IV SCH (18:18)
[2020-10-29] MEDS ORDERED: FENTANYL 2MCG/ML ROPIVACAINE 0.2% IN 0.9% NACL 100ML IVBAG As Ordered ONE (20:28)
[2020-10-29] MEDS ORDERED: ONDANSETRON 4MG/2ML VIAL IV PRN (20:35)
[2020-10-29] MEDS ORDERED: EPIDURAL COMMENT XX SCH (20:35)
[2020-10-29] MEDS ORDERED: LACTATED RINGER'S 1000 ML IV PRN (20:35)
[2020-10-29] MEDS ORDERED: REFRIGERATOR IV KEYS XX PRN (20:35)
[2020-10-29] MEDS ORDERED: NALOXONE INJ 0.4MG/1ML VIAL (J2310 PER 1MG) IV PRN (20:35)
[2020-10-29] MEDS ORDERED: diphenhydrAMINE 50MG/ML VIAL (J1200) IV PRN (20:35)
[2020-10-29] MEDS ORDERED: ePHEDrine SULFATE 25 MG/5 ML(5MG/ML) SYRINGE IV PRN (20:35)
[2020-10-29] MEDS ORDERED: EPIDURAL/PCA KEYS XX PRN (20:35)
[2020-10-29] MEDS ORDERED: fentaNYL 100 MCG/2 ML INJECTION (J3010) As Ordered ONE (23:41)
[2020-10-30] VITALS (17 sets, daily range): BP systolic 97–155; BP diastolic 56–92
[2020-10-30] MEDS: FENTANYL/ROPIVACAINE/NACL BAG 100 ML EPIDURAL SCH ×2 (00:19→04:58)
[2020-10-30] MEDS: LR 1,000 ML IV SCH ×2 (00:19→00:45)
[2020-10-30 06:27] LABS: CORD GAS ABE V -7.6; CORD GAS O2 SAT V 88.2 %; CORD GAS PCO2 V 33.2 mmHg; CORD GAS PH V 7.326 UNITS; CORD GAS PO2 V 46.1 mmHg; CORD GAS SBC V 18.3 MEQ/L
[2020-10-30 06:32] LABS: CORD GAS ABE A -11.8; CORD GAS HCO3 A 19.9 MEQ/L; CORD GAS O2 SAT A 75.8 %; CORD GAS PCO2 A 68.7 mmHg; CORD GAS PH A 7.079 UNITS; CORD GAS PO2 A 41.9 mmHg; CORD GAS SBC A 15.1 MEQ/L
[2020-10-30] MEDS ORDERED: IBUPROFEN 600MG TAB PO PRN (06:35)
[2020-10-30] MEDS ORDERED: OXYTOCIN DRIP 30 UNITS in IV 1 EA IV ONE (06:35)
[2020-10-30] MEDS ORDERED: MEASLES,MUMPS,RUBELLA VACCINE INJ (MMR-II) (90707) SC SCH (06:35)
[2020-10-30] MEDS ORDERED: RHOGAM 300 MCG (1500 IU) INJ (J2790) IM SCH (06:35)
[2020-10-30] MEDS ORDERED: METHYLERGONOVINE MALEATE 0.2 MG TAB PO PRN (06:35)
[2020-10-30] MEDS ORDERED: ACETAMINOPHEN TAB 650MG DOSE (2X325MG) PO PRN (06:35)
[2020-10-30] MEDS ORDERED: DOCUSATE SODIUM 100MG CAPSULE PO PRN (06:35)
--- NOTE | 2020-10-30 06:40 | DNPDOC ---
[facility] Delivery Note Delivery Note DATE OF DELIVERY: October 30, 2020 PREDELIVERY DIAGNOSIS: 39-0/7 weeks' gestation and labor. POST DELIVERY DIAGNOSIS: Delivered. PROCEDURE: Spontaneous vaginal delivery. FLOOR FRAMER: Dr. Al Gooden MD ANESTHESIA: epidural. ESTIMATED BLOOD LOSS: 300 mL. FINDINGS: 8 pound 11 ounce male , Score 8/9, nuchal cord times 1. VBG= 7.32 BE=-7.6 DELIVERY SUMMARY: Patient is a 20-year-old 1 now para 1 who was admitted for labor. she required Pitocin augmentation. She had AROM performed. After a 2 hour 15 minute second stage of labor she had a spontaneous vaginal delivery of an 8 lb 11 oz. male infant. Nuchal cord x 1 reduced manually. Shoulders deliver ed with ease. Infant handed to mother. Cord doubly clamped and cut. Placenta delivered spontaneously and appeared intact. Pt received IV Pitocin immediately after delivery of placenta. No vaginal lacerations present. Sponge and needle counts correct. AL GOODEN MD Oct 30, 2020 06:40
[2020-10-30] MEDS: IBUPROFEN 800 MG TAB PO PRN ×2 (06:47→17:40)
[2020-10-30] MEDS ORDERED: SLF 3 ML SYR IV PRN (07:50)
[2020-10-30] MEDS: PRENATAL VITAMINS CHEWABLE TABLET PO SCH (09:00)
[2020-10-30] MEDS: ACETAMINOPHEN 500 MG TAB PO PRN ×2 (13:28→22:27)
[2020-10-30] MEDS: SLF 3 ML SYR IV SCH ×2 (17:40→22:00)
[2020-10-31] MEDS: SLF 3 ML SYR IV SCH ×2 (05:37→14:00)
[2020-10-31] MEDS: IBUPROFEN 800 MG TAB PO PRN ×2 (05:37→16:19)
[2020-10-31 06:09] VITALS: BP 120/80
[2020-10-31] MEDS: PRENATAL VITAMINS CHEWABLE TABLET PO SCH (09:52)
[2020-10-31] MEDS: ACETAMINOPHEN 500 MG TAB PO PRN (10:39)
--- NOTE | 2020-10-31 12:23 | IPNPDOC ---
Progress Note Date of Service: Oct 31, 2020 Day#: 1 Progress Note SUBJECT: Doing well without complaints. Ambulating, voiding and pain is well-c ontrolled. Reports minimal lochia. OBJECTIVE: VITAL SIGNS: Within normal limits, afebrile. Alert and oriented times three. Abdomen: Fundus firm at U-2. Soft, NTTP. Ext: neg calf tenderness. ASSESSMENT: day #1 status post . Recovering in stable condition. PLAN: 1. Continue routine care 2. Discharge plans for tomorrow Tory Canseco MD VS, I&O, 24H, Fishbone Vital Signs/I&O Vital Signs Date Time Temp Pulse Resp B/P (MAP) Pulse Ox O2 Delivery O2 Flow Rate FiO2 10/31/20 06:09 97.4 70 18 120/80 (93) 97 I&O- Last 24 Hours up to 6 AM 10/31/20 06:00 Intake Total 3444 ml Output Total 1100 ml Balance 2344 ml TORY CANSECO MD. Oct 31, 2020 12:23
[2020-10-31 17:55] VITALS: BP 120/70
[2020-11-01] MEDS: IBUPROFEN 800 MG TAB PO PRN (00:09)
[2020-11-01] MEDS: ACETAMINOPHEN 500 MG TAB PO PRN (04:46)
[2020-11-01 05:21] VITALS: BP 120/76
[2020-11-01] MEDS: PRENATAL VITAMINS CHEWABLE TABLET PO SCH ×2 (08:53→08:54)
== END 2020-11-01 11:48 | disposition home or self-care (01) | DRG 807 ==
LOC: M LDO 12:03 → M LDI 13:30 → M OBS 10-30 08:21
PROVIDERS: ADMIT Specialist; ATTEND Specialist
PROC: 10E0XZZ Delivery of Products of Conception, External Approach (ICD-10-PCS; principal; 2020-10-30)
PROC: 10907ZC Drainage of Amniotic Fluid, Therapeutic from Products of Conception, Via Natural or Artificial Opening (ICD-10-PCS; 2020-10-30)
DX: O69.81X0 Labor and delivery complicated by cord around neck, without compression, not applicable or unspecified (principal); Z37.0 Single live birth; Z3A.39 39 weeks gestation of pregnancy; Z86.16 Personal history of COVID-19